=== PATIENT | female | born 1945 | race Caucasian/White ===

== ENCOUNTER → 2018-07-28 15:25 | Outpatient (CLI) | payer OTHER, SELFPAY ==
[2018-07-28 16:37] LABS: Alanine Aminotransferase 36 IU/L (9-52); Albumin 4.6 g/dL (3.5-5.0); Albumin Globulin Ratio 1.4 (1.0-2.8); Alkaline Phosphatase 96 U/L (38-126); Aspartate Aminotransferase 35 IU/L (14-36); BUN Creatinine Ratio 23.8 (6-22); Bilirubin Total 0.2 mg/dL (0.2-1.3); Blood Urea Nitrogen 19 mg/dL (7-17); Calcium 10.4 mg/dL (8.4-10.2); Carbon Dioxide 31 mmol/L (22-32); Chloride 100 mmol/L (98-107); Estimated Glomerular Filt Rate > 60.0 mL/min (>60); Globulin 3.3 g/dL (1.7-4.1); Glucose 92 mg/dL (80-110); HEMOLYSIS < 15 (0-50); Sodium 139 mmol/L (137-145); Total Protein 7.9 g/dL (6.3-8.2)
== END ==
PROVIDERS: PCP Internal Medicine; Visit Provider Internal Medicine
DX: G60.9 Hereditary and idiopathic neuropathy, unspecified (principal); M81.0 Age-related osteoporosis without current pathological fracture
CPT/HCPCS: 36415; 80053

== ENCOUNTER 2018-09-21 13:00 | Outpatient (RCR) | payer OTHER, SELFPAY ==
--- NOTE | 2018-05-26 16:54 | PT.OIE ---
Current Diagnoses Cervicalgia (05/26/18) Past Medical History (Last Reviewed 02/27/18 @ 14:56 by Justin Escamilla MD) Osteopenia (Chronic 02/21/11) Idiopathic peripheral neuropathy (Chronic 02/21/11) Osteoporosis (Chronic 04/08/16) Chicken pox (Resolved ~1948) Mumps (Resolved 1948) Plantar warts (Resolved ~1953) Rubella (Resolved 1948) Trigger finger (Resolved) Past Surgical History (Last Reviewed 02/27/18 @ 14:56 by Justin Escamilla MD) Anesthesia (Resolved) History of hand surgery (Resolved 2008) History of hand surgery (Resolved 2010) History of hand surgery (Resolved 2008) Status post eye surgery (Resolved 1998) Provider Visit Care Team Role Provider Type Justin Escamilla MD Attending Provider Physician Family Provider Primary Care Provider Specialty: Internal Medicine Address: [address] [place] [address], [facility] Email: [email or web address] Physical Therapy Initial Evaluation PT-OP-A Visit Information Start: 05/26/18 08:08 Freq: Status: Active Protocol: Document 05/26/18 08:59 [facility] (Rec: 05/26/18 09:50 [facility] [id number]) Out-Patient Physical Therapy Visit Information Visit Information Visit Type Initial Evaluation Visit Note 1 total Visit Start Time 09:00 Visit Stop Time 09:45 Total Visit Minutes 45 Visit Number 1/10 Number of TECHNICAL OPERATOR Visits 0 PT-OP-B Current Condition Start: 05/26/18 08:08 Freq: Status: Active Protocol: Document 05/26/18 08:59 [facility] (Rec: 05/26/18 09:50 [facility] [id number]) Current Condition History of Current Condition Onset Date 30 years ago Current Complaints neck pain History of Current Condition Pt reports straining her neck when working on their their house 3 years ago. Scapular pain 1 year ago she started therapy when pain got really bad on L side. She did PT and ent well and cont exercises, but noted pain is getting worse. Pt tried chiropractic treatment when she got back from a vacation at the end of December. She reports inc ROM but reports skull aches on R side that are most often at night that go down into R neck. She walks a lot and has no difficulty. 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 Reports being able just watch TV or conversing with friends is difficult d/t having to turn her head. Pt reports she rides her bike and wants to be able to look quickly Prior Treatments and Tests Xray done Future Testing and Treatments Planned PT & chiro Treatment Goals Patient/Caregiver Goals return to gardening, being able to talk to friends and watch TV with less issue, less difficulty with biking, be able to look up with binoculars to bird watching Personal Factors Other Personal Factors That May Effect Thumb pain B and trigger Therapy/Recovery finger sx PT-OP-C Subjective Start: 05/26/18 08:08 Freq: Status: Active Protocol: Document 05/26/18 08:59 [facility] (Rec: 05/26/18 09:50 [facility] [id number]) Patient Questionnaires Neck Disability Index NDI Score 24 Neck Disability Index Impairment 40 to 59% Impaired (Score 20- 29) OP-PT Pain Assessment Location Bilateral Neck Pain Location Details R>L and into R post head pain Intensity 5 Scale Used Numeric (1 - 10) Description Aching Description- Other worst 8 Frequency Constant Pain Duration pain most of time Pain Aggravating Factors ADL's Other Pain Aggravating Factors turning or moving head, stay in positions extended, laying on R side Pain Alleviating Factors Cold Heat Lying Supine PT-OP-F Manual Assessment Start: 05/26/18 08:08 Freq: Status: Active Protocol: Document 05/26/18 08:59 [facility] (Rec: 05/26/18 09:50 [facility] [id number]) Manual Assessments Soft Tissue Assessment Soft Tissue Mobility Assessment overall cervical tightness significant on R>L Joint Mobility Assessment Joint Mobility Assessment elevated 1st rib R PT-OP-J Posture/Palpation/Skin Start: 05/26/18 08:08 Freq: Status: Active Protocol: Document 05/26/18 08:59 [facility] (Rec: 05/26/18 09:50 [facility] [id number]) Posture Evaluation Padmini Postural Classification System Padmini Postural Classifications Anterior/Posterior Elbow Flexion Test 2 PT-OP-K Range of Motion Start: 05/26/18 08:08 Freq: Status: Active Protocol: Document 05/26/18 08:59 [facility] (Rec: 05/26/18 09:50 [facility] [id number]) Cervical Spine Range of Motion Cervical Spine Active Degrees Testing Position Sitting Flexion 31 Extension 22 Rotation Left 30 Rotation Right 38 Lateral Flexion Left 20 Lateral Flexion Right 18 ROM Limitations Pain Comments pain R w/ R lat flex, flex & ext PT-OP-L Special Tests Start: 05/26/18 08:08 Freq: Status: Active Protocol: Document 05/26/18 08:59 [facility] (Rec: 05/26/18 09:50 [facility] [id number]) Special Tests Cervical Spine Special Tests Vertebral Artery Test Results negative Spurling's Test Test Results post for pain Alar Ligament Test Results neg Neural Special Tests- Upper Body Median Nerve Tension Test Results neg L; R positive Radial Nerve Tension Test Results neg B Ulnar Nerve Tension Test Results neg Upper Limb Tension Test Comments passive abd: R ~110; L~150 PT-OP-M Strength Start: 05/26/18 08:08 Freq: Status: Active Protocol: Document 05/26/18 08:59 [facility] (Rec: 05/26/18 09:50 [facility] [id number]) Shoulder Strength Shoulder Manual Muscle Testing Right Flexion 5 Normal Extension 4 Good Abduction (C5) 5 Normal External Rotation 4+ Good+ Internal Rotation 4+ Good+ Horizontal Adduction 4+ Good+ Left Flexion 5 Normal Extension 5 Normal Abduction (C5) 5 Normal External Rotation 5 Normal Internal Rotation 5 Normal Horizontal Adduction 5 Normal PT-OP-Q Treatments Start: 05/26/18 08:08 Freq: Status: Active Protocol: Document 05/26/18 08:59 [facility] (Rec: 05/26/18 10:35 [facility] [id number]) Therapeutic Activity Therapeutic Activity brace Name edu to use brace occasionally only as needed sleep Name sleeping position Comments edu on s/l sleeping PT-OP-T Assessment and Plan Start: 05/26/18 08:08 Freq: Status: Active Protocol: Document 05/26/18 08:59 [facility] (Rec: 05/26/18 16:54 [facility] [id number]) Physical Therapy Assessment Rehab Potential Rehabilitation Potential Good Evaluation Complexity Number of Personal Factors/Comorbidities 1-2 Number of Body Systems Impaired 4 or More Clinical Presentation at Evaluation Evolving Impairments Impairments Activity Tolerance Functional Activities Pain Posture ROM Soft Tissue Mobility Strength Goals ROM Short Term Goal (STG) Indep With HEP STG Duration 06/26/18 Skilled Nursing Goal (LTG) Pt will have WFL ROM to allow her to do her typical daily activities. LTG Duration 07/27/18 NDI Impairment neck disability index Short Term Goal (STG) 18/50 STG Duration 06/26/18 Skilled Nursing Goal (LTG) to show improvement in functional ability LTG Duration 07/27/18 activities Impairment activities Short Term Goal (STG) Pt will be able to demonstrate good sleeping position and be able to sleep without waking d/t pain STG Duration 06/26/18 Skilled Nursing Goal (LTG) Pt will be able to do gardening, time with friends, read, drive and watch TV w/ minimal complaints of pain. LTG Duration 07/27/18 Assessment Summary Assessment Pt presents with cervical spine OA and degeneration consistent with her age. She has elevated 1st rib on R side which likely contributes to her pain. Pt Xray report reports Lower cervical spine disc degeneration with normal overall bony alignment to T1 level. Physical Therapy Plan Frequency and Duration Frequency of Treatment 2x/Week Duration of Treatment 2 months Plan of Care Start Date 05/26/18 Plan of Care End Date 07/27/18 Therapeutic Interventions Therapeutic Interventions Home Exercise Program Joint Mobilizations Manual Therapy Neuromuscular Re-education Patient/Caregiver Education Self-Care/Home Management Soft Tissue Mobilization Taping Therapeutic Activities Therapeutic Exercises Modalities Cold Pack/Ice Massage Electric Stimulation Hot Packs Traction- Mechanical Ultrasound Next Visit Focus/Plan Next Note Type Treatment Note Next Visit Plan HEP (axial elongation, rows, LS & UT stretches, 1st rib mob ), STM & upper thoracic mobs
--- NOTE | 2018-05-26 16:54 | PT.OPPOC ---
Current Diagnoses Cervicalgia (05/26/18) Provider Visit Care Team Role Provider Type Justin Escamilla MD Attending Provider Physician Family Provider Primary Care Provider Specialty: Internal Medicine Address: [address] [place] [address], [id number] Email: [email or web address] Plan Of Care PT-OP-T Assessment and Plan Start: 05/26/18 08:08 Freq: Status: Active Protocol: Document 05/26/18 08:59 [facility] (Rec: 05/26/18 16:54 [facility] [id number]) Physical Therapy Assessment Rehab Potential Rehabilitation Potential Good Evaluation Complexity Number of Personal Factors/Comorbidities 1-2 Number of Body Systems Impaired 4 or More Clinical Presentation at Evaluation Evolving Impairments Impairments Activity Tolerance Functional Activities Pain Posture ROM Soft Tissue Mobility Strength Goals ROM Short Term Goal (STG) Indep With HEP STG Duration 06/26/18 Gymnasium Teacher Goal (LTG) Pt will have WFL ROM to allow her to do her typical daily activities. LTG Duration 07/27/18 NDI Impairment neck disability index Short Term Goal (STG) 18/50 STG Duration 06/26/18 Gymnasium Teacher Goal (LTG) 8/50 to show improvement in functional ability LTG Duration 07/27/18 activities Impairment activities Short Term Goal (STG) Pt will be able to demonstrate good sleeping position and be able to sleep without waking d/t pain STG Duration 06/26/18 Senior Care Goal (LTG) Pt will be able to do gardening, time with friends, read, drive and watch TV w/ minimal complaints of pain. LTG Duration 07/27/18 Assessment Summary Assessment Pt presents with cervical spine OA and degeneration consistent with her age. She has elevated 1st rib on R side which likely contributes to her pain. Pt Xray report reports Lower cervical spine disc degeneration with normal overall bony alignment to T1 level. Physical Therapy Plan Frequency and Duration Frequency of Treatment 2x/Week Duration of Treatment 2 months Plan of Care Start Date 05/26/18 Plan of Care End Date 07/27/18 Therapeutic Interventions Therapeutic Interventions Home Exercise Program Joint Mobilizations Manual Therapy Neuromuscular Re-education Patient/Caregiver Education Self-Care/Home Management Soft Tissue Mobilization Taping Therapeutic Activities Therapeutic Exercises Modalities Cold Pack/Ice Massage Electric Stimulation Hot Packs Traction- Mechanical Ultrasound Next Visit Focus/Plan Next Note Type Treatment Note Next Visit Plan HEP (axial elongation, rows, LS & UT stretches, 1st rib mob ), STM & upper thoracic mobs Plan of Care Dates Plan of Care Start Date 05/26/18 Plan of Care End Date 07/27/18 Please Sign and Return: I have reviewed this Plan of Care and certify that the skilled therapy services above are required to meet the patient?s needs. Physician Signature Date Printed Name and Credentials Clinical Instructor Signature Printed Name and Credentials
--- NOTE | 2018-05-29 14:11 | PT.OTN ---
Current Diagnoses Cervicalgia (05/29/18) Physical Therapy Treatment Note PT-OP-A Visit Information Start: 05/26/18 08:08 Freq: Status: Active Protocol: Document 05/29/18 12:17 [facility] (Rec: 05/29/18 14:11 [facility] [id number]) Out-Patient Physical Therapy Visit Information Visit Information Visit Type Treatment Note Visit Note 2 total Visit Start Time 12:15 Visit Stop Time 13:15 Total Visit Minutes 60 Visit Number 2/ PT-OP-B Current Condition Start: 05/26/18 08:08 Freq: Status: Active Protocol: Document 05/26/18 08:59 [facility] (Rec: 05/26/18 09:50 [facility] [id number]) Current Condition History of Current Condition Onset Date 30 years ago Current Complaints neck pain History of Current Condition Pt reports straining her neck when working on their their house 3 years ago. Scapular pain 1 year ago she started therapy when pain got really bad on L side. She did PT and ent well and cont exercises, but noted pain is getting worse. Pt tried chiropractic treatment when she got back from a vacation at the end of December. She reports inc ROM but reports skull aches on R side that are most often at night that go down into R neck. She walks a lot and has no difficulty. 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 Reports being able just watch TV or conversing with friends is difficult d/t having to turn her head. Pt reports she rides her bike and wants to be able to look quickly Prior Treatments and Tests Xray done Future Testing and Treatments Planned PT & chiro Treatment Goals Patient/Caregiver Goals return to gardening, being able to talk to friends and watch TV with less issue, less difficulty with biking, be able to look up with binoculars to bird watching Personal Factors Other Personal Factors That May Effect Thumb pain B and trigger Therapy/Recovery finger sx PT-OP-C Subjective Start: 05/26/18 08:08 Freq: Status: Active Protocol: Document 05/29/18 12:17 [facility] (Rec: 05/29/18 14:11 [facility] [id number]) OP-PT Subjective Patient Comments Patient Comments Pt reports she has had difficulty with sleeping position d/t rolling or getting too hot. PT-OP-F Manual Assessment Start: 05/26/18 08:08 Freq: Status: Active Protocol: Document 05/26/18 08:59 [facility] (Rec: 05/26/18 09:50 [facility] [id number]) Manual Assessments Soft Tissue Assessment Soft Tissue Mobility Assessment overall cervical tightness significant on R>L Joint Mobility Assessment Joint Mobility Assessment elevated 1st rib R PT-OP-J Posture/Palpation/Skin Start: 05/26/18 08:08 Freq: Status: Active Protocol: Document 05/26/18 08:59 [facility] (Rec: 05/26/18 09:50 [facility] [id number]) Posture Evaluation [facility] Postural Classification System Padmini Postural Classifications Anterior/Posterior Elbow Flexion Test 2 PT-OP-K Range of Motion Start: 05/26/18 08:08 Freq: Status: Active Protocol: Document 05/26/18 08:59 [facility] (Rec: 05/26/18 09:50 [facility] [id number]) Cervical Spine Range of Motion Cervical Spine Active Degrees Testing Position Sitting Flexion 31 Extension 22 Rotation Left 30 Rotation Right 38 Lateral Flexion Left 20 Lateral Flexion Right 18 ROM Limitations Pain Comments pain R w/ R lat flex, flex & ext PT-OP-L Special Tests Start: 05/26/18 08:08 Freq: Status: Active Protocol: Document 05/26/18 08:59 [facility] (Rec: 05/26/18 09:50 [facility] [id number]) Special Tests Cervical Spine Special Tests Vertebral Artery Test Results negative Spurling's Test Test Results post for pain Alar Ligament Test Results neg Neural Special Tests- Upper Body Median Nerve Tension Test Results neg L; R positive Radial Nerve Tension Test Results neg B Ulnar Nerve Tension Test Results neg Upper Limb Tension Test Comments passive abd: R ~110; L~150 PT-OP-M Strength Start: 05/26/18 08:08 Freq: Status: Active Protocol: Document 05/26/18 08:59 [facility] (Rec: 05/26/18 09:50 [facility] [id number]) Shoulder Strength Shoulder Manual Muscle Testing Right Flexion 5 Normal Extension 4 Good Abduction (C5) 5 Normal External Rotation 4+ Good+ Internal Rotation 4+ Good+ Horizontal Adduction 4+ Good+ Left Flexion 5 Normal Extension 5 Normal Abduction (C5) 5 Normal External Rotation 5 Normal Internal Rotation 5 Normal Horizontal Adduction 5 Normal PT-OP-Q Treatments Start: 05/26/18 08:08 Freq: Status: Active Protocol: Document 05/29/18 12:17 [facility] (Rec: 05/29/18 14:11 [facility] [id number]) Therapeutic Exercises Supine Exercises axial elongation Supine Exercise Name axial elongation withou lifting head Reps/Minutes 10 sec hold Sitting Exercises stretches Sitting Exercise Name UT & LS stretches Reps/Minutes 30 sec holds Standing Exercises shoulder row Standing Exercise Name row Side bilateral Resistance L2 Reps/Minutes 15 Comments focus on scap retraction wall posture Standing Exercise Name w/90/90 ER Reps/Minutes 10 Manual Therapy Treatment Soft Tissue Mobilization SOR Body Location SOR Mobilization Type Sustained Pressure Intensity/Depth Moderate UT/LS Body Location UT/LS R Mobilization Type Rolling Intensity/Depth Moderate cervical paraspinals Mobilization Type Rolling Intensity/Depth Moderate Comments FM with chin tuck PT-OP-R Modalities Start: 05/26/18 08:08 Freq: Status: Active Protocol: Document 05/29/18 12:17 [facility] (Rec: 05/29/18 14:11 [facility] [id number]) Hot Pack/Cold Pack Treatment Hot Pack Location cervical Patient Position Hooklying Treatment Duration (minutes) 15 PT-OP-T Assessment and Plan Start: 05/26/18 08:08 Freq: Status: Active Protocol: Document 05/29/18 12:17 [facility] (Rec: 05/29/18 14:11 [facility] [id number]) Physical Therapy Assessment Goals ROM Short Term Goal (STG) Indep With HEP STG Duration 06/26/18 Cut Out Machine Operator Goal (LTG) Pt will have WFL ROM to allow her to do her typical daily activities. LTG Duration 07/27/18 NDI Impairment neck disability index Short Term Goal (STG) 18/50 STG Duration 06/26/18 Cut Out Machine Operator Goal (LTG) 8/50 to show improvement in functional ability LTG Duration 07/27/18 activities Impairment activities Short Term Goal (STG) Pt will be able to demonstrate good sleeping position and be able to sleep without waking d/t pain STG Duration 06/26/18 Long-Term Goal (LTG) Pt will be able to do gardening, time with friends, read, drive and watch TV w/ minimal complaints of pain. LTG Duration 07/27/18 Assessment Summary Assessment Pt has significant soft tissue restrictions that limit her motion. She has difficulty with achieving axial elongation without fwd flex. Pt did well with exercises with cueing. No pain after exercises. Physical Therapy Plan Frequency and Duration Frequency of Treatment 2x/Week Duration of Treatment 2 months Plan of Care Start Date 05/26/18 Plan of Care End Date 07/27/18 Next Visit Focus/Plan Next Note Type Treatment Note Next Visit Plan review HEP & work on PNF scapular dep
--- NOTE | 2018-06-05 13:01 | PT.OTN ---
Current Diagnoses Cervicalgia (06/05/18) Physical Therapy Treatment Note PT-OP-A Visit Information Start: 05/26/18 08:08 Freq: Status: Active Protocol: Document 06/05/18 12:23 [facility] (Rec: 06/05/18 13:01 [facility] [id number]) Out-Patient Physical Therapy Visit Information Visit Information Visit Type Treatment Note Visit Note 3 total Visit Start Time 12:15 Visit Stop Time 13:10 Total Visit Minutes 55 Visit Number 3/ PT-OP-B Current Condition Start: 05/26/18 08:08 Freq: Status: Active Protocol: Document 05/26/18 08:59 [facility] (Rec: 05/26/18 09:50 [facility] [id number]) Current Condition History of Current Condition Onset Date 30 years ago Current Complaints neck pain History of Current Condition Pt reports straining her neck when working on their their house 3 years ago. Scapular pain 1 year ago she started therapy when pain got really bad on L side. She did PT and ent well and cont exercises, but noted pain is getting worse. Pt tried chiropractic treatment when she got back from a vacation at the end of December. She reports inc ROM but reports skull aches on R side that are most often at night that go down into R neck. She walks a lot and has no difficulty. 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 Reports being able just watch TV or conversing with friends is difficult d/t having to turn her head. Pt reports she rides her bike and wants to be able to look quickly Prior Treatments and Tests Xray done Future Testing and Treatments Planned PT & chiro Treatment Goals Patient/Caregiver Goals return to gardening, being able to talk to friends and watch TV with less issue, less difficulty with biking, be able to look up with binoculars to bird watching Personal Factors Other Personal Factors That May Effect Thumb pain B and trigger Therapy/Recovery finger sx PT-OP-C Subjective Start: 05/26/18 08:08 Freq: Status: Active Protocol: Document 06/05/18 12:23 [facility] (Rec: 06/05/18 13:01 [facility] [id number]) OP-PT Subjective Patient Comments Patient Comments Pt reports she feels like she overall did well with exercises. PT-OP-F Manual Assessment Start: 05/26/18 08:08 Freq: Status: Active Protocol: Document 05/26/18 08:59 [facility] (Rec: 05/26/18 09:50 [facility] [id number]) Manual Assessments Soft Tissue Assessment Soft Tissue Mobility Assessment overall cervical tightness significant on R>L Joint Mobility Assessment Joint Mobility Assessment elevated 1st rib R PT-OP-J Posture/Palpation/Skin Start: 05/26/18 08:08 Freq: Status: Active Protocol: Document 05/26/18 08:59 [facility] (Rec: 05/26/18 09:50 [facility] [id number]) Posture Evaluation [facility] Postural Classification System [facility] Postural Classifications Anterior/Posterior Elbow Flexion Test 2 PT-OP-K Range of Motion Start: 05/26/18 08:08 Freq: Status: Active Protocol: Document 05/26/18 08:59 [facility] (Rec: 05/26/18 09:50 [facility] [id number]) Cervical Spine Range of Motion Cervical Spine Active Degrees Testing Position Sitting Flexion 31 Extension 22 Rotation Left 30 Rotation Right 38 Lateral Flexion Left 20 Lateral Flexion Right 18 ROM Limitations Pain Comments pain R w/ R lat flex, flex & ext PT-OP-L Special Tests Start: 05/26/18 08:08 Freq: Status: Active Protocol: Document 05/26/18 08:59 [facility] (Rec: 05/26/18 09:50 [facility] [id number]) Special Tests Cervical Spine Special Tests Vertebral Artery Test Results negative Spurling's Test Test Results post for pain Alar Ligament Test Results neg Neural Special Tests- Upper Body Median Nerve Tension Test Results neg L; R positive Radial Nerve Tension Test Results neg B Ulnar Nerve Tension Test Results neg Upper Limb Tension Test Comments passive abd: R ~110; L~150 PT-OP-M Strength Start: 05/26/18 08:08 Freq: Status: Active Protocol: Document 05/26/18 08:59 [facility] (Rec: 05/26/18 09:50 [facility] [id number]) Shoulder Strength Shoulder Manual Muscle Testing Right Flexion 5 Normal Extension 4 Good Abduction (C5) 5 Normal External Rotation 4+ Good+ Internal Rotation 4+ Good+ Horizontal Adduction 4+ Good+ Left Flexion 5 Normal Extension 5 Normal Abduction (C5) 5 Normal External Rotation 5 Normal Internal Rotation 5 Normal Horizontal Adduction 5 Normal PT-OP-Q Treatments Start: 05/26/18 08:08 Freq: Status: Active Protocol: Document 06/05/18 12:23 [facility] (Rec: 06/05/18 13:01 [facility] [id number]) Therapeutic Exercises Supine Exercises axial elongation Supine Exercise Name axial elongation withou lifting head Reps/Minutes 10 sec hold Sidelying Exercises roll & reach Sidelying Exercise Name roll & reach Reps/Minutes 10 Sitting Exercises stretches Sitting Exercise Name UT & LS & scalene stretches Reps/Minutes 30 sec holds Standing Exercises shoulder row Standing Exercise Name row Side bilateral Resistance L2 Reps/Minutes 15 Comments focus on scap retraction wall posture Standing Exercise Name w/90/90 ER Reps/Minutes 10 Manual Therapy Treatment Soft Tissue Mobilization scalenes Body Location scalenes R Mobilization Type Rolling SOR Body Location SOR Mobilization Type Sustained Pressure Intensity/Depth Moderate UT/LS Body Location UT/LS R Mobilization Type Rolling Intensity/Depth Moderate Joint Mobilizations 1st rib Joint 1st rib Direction caudal FM PT-OP-R Modalities Start: 05/26/18 08:08 Freq: Status: Active Protocol: Document 06/05/18 12:23 [facility] (Rec: 06/05/18 13:01 [facility] [id number]) Hot Pack/Cold Pack Treatment Hot Pack Location cervical Patient Position Hooklying Treatment Duration (minutes) 15 PT-OP-T Assessment and Plan Start: 05/26/18 08:08 Freq: Status: Active Protocol: Document 06/05/18 12:23 [facility] (Rec: 06/05/18 13:01 [facility] [id number]) Physical Therapy Assessment Goals ROM Short Term Goal (STG) Indep With HEP STG Duration 06/26/18 Sales Representative Facility Services Goal (LTG) Pt will have WFL ROM to allow her to do her typical daily activities. LTG Duration 07/27/18 NDI Impairment neck disability index Short Term Goal (STG) 18/50 STG Duration 06/26/18 Prison Goal (LTG) 8/50 to show improvement in functional ability LTG Duration 07/27/18 activities Impairment activities Short Term Goal (STG) Pt will be able to demonstrate good sleeping position and be able to sleep without waking d/t pain STG Duration 06/26/18 Prison Goal (LTG) Pt will be able to do gardening, time with friends, read, drive and watch TV w/ minimal complaints of pain. LTG Duration 07/27/18 Assessment Summary Assessment Pt is improving with scapular mobility, but does have some upper thoracic tightness limiting neck range. Improved in UT and LS mm tesnsion after STM. Physical Therapy Plan Frequency and Duration Frequency of Treatment 2x/Week Duration of Treatment 2 months Plan of Care Start Date 05/26/18 Plan of Care End Date 07/27/18 Next Visit Focus/Plan Next Note Type Treatment Note Next Visit Plan PNF scapular depression.
--- NOTE | 2018-06-08 13:49 | PT.OTN ---
Current Diagnoses Cervicalgia (06/08/18) Physical Therapy Treatment Note PT-OP-A Visit Information Start: 05/26/18 08:08 Freq: Status: Active Protocol: Document 06/08/18 12:02 [facility] (Rec: 06/08/18 12:04 [facility] [id number]) Out-Patient Physical Therapy Visit Information Visit Information Visit Type Treatment Note Visit Note 4 total Visit Start Time 11:20 Visit Stop Time 12:15 Total Visit Minutes 55 Visit Number 09/30 PT-OP-B Current Condition Start: 05/26/18 08:08 Freq: Status: Active Protocol: Document 05/26/18 08:59 [facility] (Rec: 05/26/18 09:50 [facility] [id number]) Current Condition History of Current Condition Onset Date 30 years ago Current Complaints neck pain History of Current Condition Pt reports straining her neck when working on their their house 3 years ago. Scapular pain 1 year ago she started therapy when pain got really bad on L side. She did PT and ent well and cont exercises, but noted pain is getting worse. Pt tried chiropractic treatment when she got back from a vacation at the end of December. She reports inc ROM but reports skull aches on R side that are most often at night that go down into R neck. She walks a lot and has no difficulty. 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 Reports being able just watch TV or conversing with friends is difficult d/t having to turn her head. Pt reports she rides her bike and wants to be able to look quickly Prior Treatments and Tests Xray done Future Testing and Treatments Planned PT & chiro Treatment Goals Patient/Caregiver Goals return to gardening, being able to talk to friends and watch TV with less issue, less difficulty with biking, be able to look up with binoculars to bird watching Personal Factors Other Personal Factors That May Effect Thumb pain B and trigger Therapy/Recovery finger sx PT-OP-C Subjective Start: 05/26/18 08:08 Freq: Status: Active Protocol: Document 06/08/18 12:02 [facility] (Rec: 06/08/18 12:04 [facility] [id number]) OP-PT Subjective Patient Comments Patient Comments Pt reports she noticed when she tried bird watching she felt stiff looking up to the right PT-OP-F Manual Assessment Start: 05/26/18 08:08 Freq: Status: Active Protocol: Document 05/26/18 08:59 [facility] (Rec: 05/26/18 09:50 [facility] [id number]) Manual Assessments Soft Tissue Assessment Soft Tissue Mobility Assessment overall cervical tightness significant on R>L Joint Mobility Assessment Joint Mobility Assessment elevated 1st rib R PT-OP-J Posture/Palpation/Skin Start: 05/26/18 08:08 Freq: Status: Active Protocol: Document 05/26/18 08:59 [facility] (Rec: 05/26/18 09:50 [facility] [id number]) Posture Evaluation [facility] Postural Classification System [facility] Postural Classifications Anterior/Posterior Elbow Flexion Test 2 PT-OP-K Range of Motion Start: 05/26/18 08:08 Freq: Status: Active Protocol: Document 05/26/18 08:59 [facility] (Rec: 05/26/18 09:50 [facility] [id number]) Cervical Spine Range of Motion Cervical Spine Active Degrees Testing Position Sitting Flexion 31 Extension 22 Rotation Left 30 Rotation Right 38 Lateral Flexion Left 20 Lateral Flexion Right 18 ROM Limitations Pain Comments pain R w/ R lat flex, flex & ext PT-OP-L Special Tests Start: 05/26/18 08:08 Freq: Status: Active Protocol: Document 05/26/18 08:59 [facility] (Rec: 05/26/18 09:50 [facility] [id number]) Special Tests Cervical Spine Special Tests Vertebral Artery Test Results negative Spurling's Test Test Results post for pain Alar Ligament Test Results neg Neural Special Tests- Upper Body Median Nerve Tension Test Results neg L; R positive Radial Nerve Tension Test Results neg B Ulnar Nerve Tension Test Results neg Upper Limb Tension Test Comments passive abd: R ~110; L~150 PT-OP-M Strength Start: 05/26/18 08:08 Freq: Status: Active Protocol: Document 05/26/18 08:59 [facility] (Rec: 05/26/18 09:50 [facility] [id number]) Shoulder Strength Shoulder Manual Muscle Testing Right Flexion 5 Normal Extension 4 Good Abduction (C5) 5 Normal External Rotation 4+ Good+ Internal Rotation 4+ Good+ Horizontal Adduction 4+ Good+ Left Flexion 5 Normal Extension 5 Normal Abduction (C5) 5 Normal External Rotation 5 Normal Internal Rotation 5 Normal Horizontal Adduction 5 Normal PT-OP-Q Treatments Start: 12/04/18 08:08 Freq: Status: Active Protocol: Document 06/08/18 12:02 [facility] (Rec: 06/08/18 13:49 [facility] [id number]) Manual Therapy Treatment Soft Tissue Mobilization SOR Body Location SOR Mobilization Type Sustained Pressure Intensity/Depth Moderate UT/LS Body Location UT/LS R Mobilization Type Rolling Intensity/Depth Moderate cervical paraspinals Mobilization Type Rolling Intensity/Depth Moderate Comments FM with chin tuck Joint Mobilizations C2 Joint C2 Direction L transverse FM T1-3 Joint T1-3 Direction L transverse FM & R UPA FM 1st rib Joint 1st rib Direction caudal FM Neuro Re-Education Treatment Other Activities post depression Details post depression Comments rhythmic initiation ot COI ant elevation Details ant elevation Comments rhythmic initiation to COI PT-OP-R Modalities Start: 05/26/18 08:08 Freq: Status: Active Protocol: Document 06/08/18 12:02 [facility] (Rec: 06/08/18 12:04 [facility] [id number]) Hot Pack/Cold Pack Treatment Hot Pack Location cervical Patient Position Hooklying Treatment Duration (minutes) 15 PT-OP-T Assessment and Plan Start: 05/26/18 08:08 Freq: Status: Active Protocol: Document 06/08/18 12:02 [facility] (Rec: 06/08/18 13:49 [facility] [id number]) Physical Therapy Assessment Goals ROM Short Term Goal (STG) Indep With HEP STG Duration 06/26/18 Snf Goal (LTG) Pt will have WFL ROM to allow her to do her typical daily activities. 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 LTG Duration 07/27/18 Assessment Summary Assessment Pt improved with post depression range after working PNF patterns, but does cont to have limitations with rotations & extensions. Pt improves ROM with PA & transverse glides. Physical Therapy Plan Frequency and Duration Frequency of Treatment 2x/Week Duration of Treatment 2 months Plan of Care Start Date 05/26/18 Plan of Care End Date 07/27/18 Next Visit Focus/Plan Next Note Type Treatment Note Next Visit Plan End range stretches; ext & ER
--- NOTE | 2018-06-11 10:30 | PT.OTN ---
Current Diagnoses Cervicalgia (06/11/18) Physical Therapy Treatment Note PT-OP-A Visit Information Start: 05/26/18 08:08 Freq: Status: Active Protocol: Document 06/11/18 10:27 [facility] (Rec: 06/11/18 10:30 [facility] [id number]) Out-Patient Physical Therapy Visit Information Visit Information Visit Type Treatment Note Visit Note 5 total Visit Start Time 09:45 Visit Stop Time 10:33 Total Visit Minutes 48 Visit Number / PT-OP-B Current Condition Start: 05/26/18 08:08 Freq: Status: Active Protocol: Document 05/26/18 08:59 [facility] (Rec: 05/26/18 09:50 [facility] [id number]) Current Condition History of Current Condition Onset Date 30 years ago Current Complaints neck pain History of Current Condition Pt reports straining her neck when working on their their house 3 years ago. Scapular pain 1 year ago she started therapy when pain got really bad on L side. She did PT and ent well and cont exercises, but noted pain is getting worse. Pt tried chiropractic treatment when she got back from a vacation at the end of December. She reports inc ROM but reports skull aches on R side that are most often at night that go down into R neck. She walks a lot and has no difficulty. 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 Reports being able just watch TV or conversing with friends is difficult d/t having to turn her head. Pt reports she rides her bike and wants to be able to look quickly Prior Treatments and Tests Xray done Future Testing and Treatments Planned PT & chiro Treatment Goals Patient/Caregiver Goals return to gardening, being able to talk to friends and watch TV with less issue, less difficulty with biking, be able to look up with binoculars to bird watching Personal Factors Other Personal Factors That May Effect Thumb pain B and trigger Therapy/Recovery finger sx PT-OP-C Subjective Start: 05/26/18 08:08 Freq: Status: Active Protocol: Document 06/11/18 10:27 [facility] (Rec: 06/11/18 10:30 [facility] [id number]) OP-PT Subjective Patient Comments Patient Comments Reports she hasn't stretched yet today but is otherwise doing HEP daily PT-OP-F Manual Assessment Start: 05/26/18 08:08 Freq: Status: Active Protocol: Document 05/26/18 08:59 [facility] (Rec: 05/26/18 09:50 [facility] [id number]) Manual Assessments Soft Tissue Assessment Soft Tissue Mobility Assessment overall cervical tightness significant on R>L Joint Mobility Assessment Joint Mobility Assessment elevated 1st rib R PT-OP-J Posture/Palpation/Skin Start: 05/26/18 08:08 Freq: Status: Active Protocol: Document 05/26/18 08:59 [facility] (Rec: 05/26/18 09:50 [facility] [id number]) Posture Evaluation [facility] Postural Classification System [facility] Postural Classifications Anterior/Posterior Elbow Flexion Test 2 PT-OP-K Range of Motion Start: 05/26/18 08:08 Freq: Status: Active Protocol: Document 05/26/18 08:59 [facility] (Rec: 05/26/18 09:50 [facility] [id number]) Cervical Spine Range of Motion Cervical Spine Active Degrees Testing Position Sitting Flexion 31 Extension 22 Rotation Left 30 Rotation Right 38 Lateral Flexion Left 20 Lateral Flexion Right 18 ROM Limitations Pain Comments pain R w/ R lat flex, flex & ext PT-OP-L Special Tests Start: 05/26/18 08:08 Freq: Status: Active Protocol: Document 05/26/18 08:59 [facility] (Rec: 05/26/18 09:50 [facility] [id number]) Special Tests Cervical Spine Special Tests Vertebral Artery Test Results negative Spurling's Test Test Results post for pain Alar Ligament Test Results neg Neural Special Tests- Upper Body Median Nerve Tension Test Results neg L; R positive Radial Nerve Tension Test Results neg B Ulnar Nerve Tension Test Results neg Upper Limb Tension Test Comments passive abd: R ~110; L~150 PT-OP-M Strength Start: 05/26/18 08:08 Freq: Status: Active Protocol: Document 05/26/18 08:59 [facility] (Rec: 05/26/18 09:50 [facility] [id number]) Shoulder Strength Shoulder Manual Muscle Testing Right Flexion 5 Normal Extension 4 Good Abduction (C5) 5 Normal External Rotation 4+ Good+ Internal Rotation 4+ Good+ Horizontal Adduction 4+ Good+ Left Flexion 5 Normal Extension 5 Normal Abduction (C5) 5 Normal External Rotation 5 Normal Internal Rotation 5 Normal Horizontal Adduction 5 Normal PT-OP-Q Treatments Start: 05/26/18 08:08 Freq: Status: Active Protocol: Document 06/11/18 10:27 [facility] (Rec: 06/11/18 10:30 [facility] [id number]) Manual Therapy Treatment Soft Tissue Mobilization CT junction Body Location CT junction Post Mobilization Type Myofascial Release Comments FM w/dycem scalenes Body Location scalenes R Mobilization Type Rolling SOR Body Location SOR Mobilization Type Sustained Pressure Intensity/Depth Moderate UT/LS Body Location UT/LS R Mobilization Type Rolling Intensity/Depth Moderate cervical paraspinals Mobilization Type Rolling Intensity/Depth Moderate Comments FM with chin tuck Joint Mobilizations SC Joint SC Direction caudal FM B 1st rib Joint 1st rib R Direction caudal FM PT-OP-R Modalities Start: 05/26/18 08:08 Freq: Status: Active Protocol: Document 06/11/18 10:27 [facility] (Rec: 06/11/18 10:30 [facility] [id number]) Hot Pack/Cold Pack Treatment Cold Pack Location cervical Patient Position Hooklying Treatment Duration (minutes) 10 PT-OP-T Assessment and Plan Start: 05/26/18 08:08 Freq: Status: Active Protocol: Document 06/11/18 10:27 [facility] (Rec: 06/11/18 10:30 [facility] [id number]) Physical Therapy Assessment Goals ROM Short Term Goal (STG) Indep With HEP STG Duration 06/26/18 Senior Living Goal (LTG) Pt will have WFL ROM to allow her to do her typical daily activities. LTG Duration 07/27/18 NDI Impairment neck disability index Short Term Goal (STG) 18/50 STG Duration 06/26/18 Flight Instructor Goal (LTG) 8/50 to show improvement in functional ability LTG Duration 07/27/18 activities Impairment activities Short Term Goal (STG) Pt will be able to demonstrate good sleeping position and be able to sleep without waking d/t pain STG Duration 06/26/18 Senior Living Goal (LTG) Pt will be able to do gardening, time with friends, read, drive and watch TV w/ minimal complaints of pain. LTG Duration 07/27/18 Assessment Summary Assessment Pt improved from about 37 deg flex to 52 after manual treatment to post cervical soft tissues and downward glide of clavicle. Improved L rotation with STM to lat mm of R side. Physical Therapy Plan Frequency and Duration Frequency of Treatment 2x/Week Duration of Treatment 2 months Plan of Care Start Date 05/26/18 Plan of Care End Date 07/27/18 Next Visit Focus/Plan Next Note Type Treatment Note Next Visit Plan End range stretches; ext & ER
--- NOTE | 2018-06-17 11:20 | PT.OTN ---
Current Diagnoses Cervicalgia (06/17/18) Physical Therapy Treatment Note PT-OP-A Visit Information Start: 05/26/18 08:08 Freq: Status: Active Protocol: Document 06/17/18 10:31 [facility] (Rec: 06/17/18 11:19 [facility] [id number]) Out-Patient Physical Therapy Visit Information Visit Information Visit Type Treatment Note Visit Note 6 total Visit Start Time 10:30 Visit Stop Time 11:25 Total Visit Minutes 55 Visit Number 11/30 PT-OP-B Current Condition Start: 05/26/18 08:08 Freq: Status: Active Protocol: Document 05/26/18 08:59 [facility] (Rec: 05/26/18 09:50 [facility] [id number]) Current Condition History of Current Condition Onset Date 30 years ago Current Complaints neck pain History of Current Condition Pt reports straining her neck when working on their their house 3 years ago. Scapular pain 1 year ago she started therapy when pain got really bad on L side. She did PT and ent well and cont exercises, but noted pain is getting worse. Pt tried chiropractic treatment when she got back from a vacation at the end of December. She reports inc ROM but reports skull aches on R side that are most often at night that go down into R neck. She walks a lot and has no difficulty. 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 Reports being able just watch TV or conversing with friends is difficult d/t having to turn her head. Pt reports she rides her bike and wants to be able to look quickly Prior Treatments and Tests Xray done Future Testing and Treatments Planned PT & chiro Treatment Goals Patient/Caregiver Goals return to gardening, being able to talk to friends and watch TV with less issue, less difficulty with biking, be able to look up with binoculars to bird watching Personal Factors Other Personal Factors That May Effect Thumb pain B and trigger Therapy/Recovery finger sx PT-OP-C Subjective Start: 05/26/18 08:08 Freq: Status: Active Protocol: Document 06/17/18 10:31 [facility] (Rec: 06/17/18 11:19 [facility] [id number]) OP-PT Subjective Patient Comments Patient Comments Reports she sometimes gets pain in neck when laying down and repositioning. PT-OP-F Manual Assessment Start: 05/26/18 08:08 Freq: Status: Active Protocol: Document 05/26/18 08:59 [facility] (Rec: 05/26/18 09:50 [facility] [id number]) Manual Assessments Soft Tissue Assessment Soft Tissue Mobility Assessment overall cervical tightness significant on R>L Joint Mobility Assessment Joint Mobility Assessment elevated 1st rib R PT-OP-J Posture/Palpation/Skin Start: 05/26/18 08:08 Freq: Status: Active Protocol: Document 05/26/18 08:59 [facility] (Rec: 05/26/18 09:50 [facility] [id number]) Posture Evaluation [facility] Postural Classification System [facility] Postural Classifications Anterior/Posterior Elbow Flexion Test 2 PT-OP-K Range of Motion Start: 05/26/18 08:08 Freq: Status: Active Protocol: Document 05/26/18 08:59 [facility] (Rec: 05/26/18 09:50 [facility] [id number]) Cervical Spine Range of Motion Cervical Spine Active Degrees Testing Position Sitting Flexion 31 Extension 22 Rotation Left 30 Rotation Right 38 Lateral Flexion Left 20 Lateral Flexion Right 18 ROM Limitations Pain Comments pain R w/ R lat flex, flex & ext PT-OP-L Special Tests Start: 05/26/18 08:08 Freq: Status: Active Protocol: Document 05/26/18 08:59 [facility] (Rec: 05/26/18 09:50 [facility] [id number]) Special Tests Cervical Spine Special Tests Vertebral Artery Test Results negative Spurling's Test Test Results post for pain Alar Ligament Test Results neg Neural Special Tests- Upper Body Median Nerve Tension Test Results neg L; R positive Radial Nerve Tension Test Results neg B Ulnar Nerve Tension Test Results neg Upper Limb Tension Test Comments passive abd: R ~110; L~150 PT-OP-M Strength Start: 05/26/18 08:08 Freq: Status: Active Protocol: Document 05/26/18 08:59 [facility] (Rec: 05/26/18 09:50 [facility] [id number]) Shoulder Strength Shoulder Manual Muscle Testing Right Flexion 5 Normal Extension 4 Good Abduction (C5) 5 Normal External Rotation 4+ Good+ Internal Rotation 4+ Good+ Horizontal Adduction 4+ Good+ Left Flexion 5 Normal Extension 5 Normal Abduction (C5) 5 Normal External Rotation 5 Normal Internal Rotation 5 Normal Horizontal Adduction 5 Normal PT-OP-Q Treatments Start: 05/26/18 08:08 Freq: Status: Active Protocol: Document 06/17/18 10:31 [facility] (Rec: 06/17/18 11:19 [facility] [id number]) Therapeutic Exercises Supine Exercises rotations Supine Exercise Name end range rotations with overpressure Reps/Minutes 30 sec hold Standing Exercises shoulder ER Standing Exercise Name B ER Equipment Used L2 Reps/Minutes 20 shoulder ext Standing Exercise Name shoulder ext B Equipment Used L3 Reps/Minutes 20 Therapeutic Activity Therapeutic Activity standing Name standing posture Manual Therapy Treatment Soft Tissue Mobilization cranial fascia Body Location cranial fascia Mobilization Type Myofascial Release SOR Body Location SOR Mobilization Type Sustained Pressure Intensity/Depth Moderate cervical paraspinals Mobilization Type Rolling Intensity/Depth Moderate Comments FM with chin tuck PT-OP-R Modalities Start: 05/26/18 08:08 Freq: Status: Active Protocol: Document 06/17/18 10:31 [facility] (Rec: 06/17/18 11:19 [facility] [id number]) Hot Pack/Cold Pack Treatment Hot Pack Location cervical Patient Position Hooklying Treatment Duration (minutes) 15 PT-OP-T Assessment and Plan Start: 05/26/18 08:08 Freq: Status: Active Protocol: Document 06/17/18 10:31 [facility] (Rec: 06/17/18 11:19 [facility] [id number]) Physical Therapy Assessment Goals ROM Short Term Goal (STG) Indep With HEP STG Duration 06/26/18 Residential Goal (LTG) Pt will have WFL ROM to allow her to do her typical daily activities. LTG Duration 07/27/18 NDI Impairment neck disability index Short Term Goal (STG) 18/50 STG Duration 06/26/18 Residential Goal (LTG) 8/50 to show improvement in functional ability LTG Duration 07/27/18 activities Impairment activities Short Term Goal (STG) Pt will be able to demonstrate good sleeping position and be able to sleep without waking d/t pain STG Duration 06/26/18 Residential Goal (LTG) Pt will be able to do gardening, time with friends, read, drive and watch TV w/ minimal complaints of pain. LTG Duration 07/27/18 Assessment Summary Assessment Pt improving facial mobility with STM. She required cueing to get into good posture & picutes and cueing for tband exercises. Physical Therapy Plan Frequency and Duration Frequency of Treatment 2x/Week Duration of Treatment 2 months Plan of Care Start Date 05/26/18 Plan of Care End Date 07/27/18 Next Visit Focus/Plan Next Note Type Treatment Note Next Visit Plan review HEP & work on cranial mobs
--- NOTE | 2018-06-19 12:48 | PT.OTN ---
Current Diagnoses Cervicalgia (06/19/18) Physical Therapy Treatment Note PT-OP-A Visit Information Start: 05/26/18 08:08 Freq: Status: Active Protocol: Document 06/19/18 12:39 [facility] (Rec: 06/19/18 12:48 [facility] [id number]) Out-Patient Physical Therapy Visit Information Visit Information Visit Type Treatment Note Visit Note 7 total Visit Start Time 10:30 Visit Stop Time 11:25 Total Visit Minutes 55 Visit Number 12/30 PT-OP-B Current Condition Start: 05/26/18 08:08 Freq: Status: Active Protocol: Document 05/26/18 08:59 [facility] (Rec: 05/26/18 09:50 [facility] [id number]) Current Condition History of Current Condition Onset Date 30 years ago Current Complaints neck pain History of Current Condition Pt reports straining her neck when working on their their house 3 years ago. Scapular pain 1 year ago she started therapy when pain got really bad on L side. She did PT and ent well and cont exercises, but noted pain is getting worse. Pt tried chiropractic treatment when she got back from a vacation at the end of December. She reports inc ROM but reports skull aches on R side that are most often at night that go down into R neck. She walks a lot and has no difficulty. 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 Reports being able just watch TV or conversing with friends is difficult d/t having to turn her head. Pt reports she rides her bike and wants to be able to look quickly Prior Treatments and Tests Xray done Future Testing and Treatments Planned PT & chiro Treatment Goals Patient/Caregiver Goals return to gardening, being able to talk to friends and watch TV with less issue, less difficulty with biking, be able to look up with binoculars to bird watching Personal Factors Other Personal Factors That May Effect Thumb pain B and trigger Therapy/Recovery finger sx PT-OP-C Subjective Start: 05/26/18 08:08 Freq: Status: Active Protocol: Document 06/19/18 12:39 [facility] (Rec: 06/19/18 12:48 [facility] [id number]) OP-PT Subjective Patient Comments Patient Comments Pt reports she will be bird watching a lot this weekend. PT-OP-F Manual Assessment Start: 05/26/18 08:08 Freq: Status: Active Protocol: Document 05/26/18 08:59 [facility] (Rec: 05/26/18 09:50 [facility] [id number]) Manual Assessments Soft Tissue Assessment Soft Tissue Mobility Assessment overall cervical tightness significant on R>L Joint Mobility Assessment Joint Mobility Assessment elevated 1st rib R PT-OP-J Posture/Palpation/Skin Start: 05/26/18 08:08 Freq: Status: Active Protocol: Document 05/26/18 08:59 [facility] (Rec: 05/26/18 09:50 [facility] [id number]) Posture Evaluation [facility] Postural Classification System [facility] Postural Classifications Anterior/Posterior Elbow Flexion Test 2 PT-OP-K Range of Motion Start: 05/26/18 08:08 Freq: Status: Active Protocol: Document 05/26/18 08:59 [facility] (Rec: 05/26/18 09:50 [facility] [id number]) Cervical Spine Range of Motion Cervical Spine Active Degrees Testing Position Sitting Flexion 31 Extension 22 Rotation Left 30 Rotation Right 38 Lateral Flexion Left 20 Lateral Flexion Right 18 ROM Limitations Pain Comments pain R w/ R lat flex, flex & ext PT-OP-L Special Tests Start: 05/26/18 08:08 Freq: Status: Active Protocol: Document 05/26/18 08:59 [facility] (Rec: 05/26/18 09:50 [facility] [id number]) Special Tests Cervical Spine Special Tests Vertebral Artery Test Results negative Spurling's Test Test Results post for pain Alar Ligament Test Results neg Neural Special Tests- Upper Body Median Nerve Tension Test Results neg L; R positive Radial Nerve Tension Test Results neg B Ulnar Nerve Tension Test Results neg Upper Limb Tension Test Comments passive abd: R ~110; L~150 PT-OP-M Strength Start: 05/26/18 08:08 Freq: Status: Active Protocol: Document 05/26/18 08:59 [facility] (Rec: 05/26/18 09:50 [facility] [id number]) Shoulder Strength Shoulder Manual Muscle Testing Right Flexion 5 Normal Extension 4 Good Abduction (C5) 5 Normal External Rotation 4+ Good+ Internal Rotation 4+ Good+ Horizontal Adduction 4+ Good+ Left Flexion 5 Normal Extension 5 Normal Abduction (C5) 5 Normal External Rotation 5 Normal Internal Rotation 5 Normal Horizontal Adduction 5 Normal PT-OP-Q Treatments Start: 05/26/18 08:08 Freq: Status: Active Protocol: Document 06/19/18 12:39 [facility] (Rec: 06/19/18 12:48 [facility] [id number]) Therapeutic Exercises Supine Exercises rotations Supine Exercise Name end range rotations with overpressure Reps/Minutes 30 sec hold Standing Exercises flexion Standing Exercise Name w/small range HAbd for retraction Equipment Used L1 Reps/Minutes 8 shoulder ER Standing Exercise Name B ER Equipment Used L2 Reps/Minutes 20 Therapeutic Activity Therapeutic Activity birdwatching Name focus on posture & UE movemtn during bird watching Manual Therapy Treatment Soft Tissue Mobilization SOR Body Location SOR Mobilization Type Sustained Pressure Intensity/Depth Moderate cervical paraspinals Mobilization Type Rolling Intensity/Depth Moderate Comments FM with chin tuck Joint Mobilizations C1 Joint C1 Direction transverse L & UPA R FM SC Joint SC Direction caudal FM B C2 Joint C2 Direction L transverse FM T1-3 Joint T1-3 Direction PA FM PT-OP-R Modalities Start: 05/26/18 08:08 Freq: Status: Active Protocol: Document 06/19/18 12:39 [facility] (Rec: 06/19/18 12:48 [facility] [id number]) Hot Pack/Cold Pack Treatment Cold Pack Location cervical Patient Position Hooklying Treatment Duration (minutes) 10 PT-OP-T Assessment and Plan Start: 05/26/18 08:08 Freq: Status: Active Protocol: Document 06/19/18 12:39 [facility] (Rec: 06/19/18 12:48 [facility] [id number]) Physical Therapy Assessment Goals ROM Short Term Goal (STG) Indep With HEP STG Duration 06/26/18 Correction Goal (LTG) Pt will have WFL ROM to allow her to do her typical daily activities. LTG Duration 07/27/18 NDI Impairment neck disability index Short Term Goal (STG) 18/50 STG Duration 06/26/18 Parts Counter Representative Goal (LTG) to show improvement in functional ability LTG Duration 07/27/18 activities Impairment activities Short Term Goal (STG) Pt will be able to demonstrate good sleeping position and be able to sleep without waking d/t pain STG Duration 06/26/18 Correction Goal (LTG) Pt will be able to do gardening, time with friends, read, drive and watch TV w/ minimal complaints of pain. LTG Duration 07/27/18 Assessment Summary Assessment Pt required scapular correction for lifting up binoculars & scapular position to improve neck ext. Improved neck ext from 45 deg to 70 after manual treatment and improved flex from 50 deg to 62 after manual treatment. R rotation started at about 60% of range and inc to about 75% after treatmetn. Physical Therapy Plan Frequency and Duration Frequency of Treatment 2x/Week Duration of Treatment 2 months Plan of Care Start Date 05/26/18 Plan of Care End Date 07/27/18 Next Visit Focus/Plan Next Note Type Treatment Note Next Visit Plan cont to work cranial mobs & R rot
--- NOTE | 2018-06-29 10:29 | PT.OTN ---
Current Diagnoses Cervicalgia (06/29/18) Physical Therapy Treatment Note PT-OP-A Visit Information Start: 05/26/18 08:08 Freq: Status: Active Protocol: Document 06/29/18 09:50 [facility] (Rec: 06/29/18 10:29 [facility] [id number]) Out-Patient Physical Therapy Visit Information Visit Information Visit Type Treatment Note Visit Note 8 total Visit Start Time 09:45 Visit Stop Time 10:40 Total Visit Minutes 55 Visit Number 8 PT-OP-B Current Condition Start: 05/26/18 08:08 Freq: Status: Active Protocol: Document 05/26/18 08:59 [facility] (Rec: 05/26/18 09:50 [facility] [id number]) Current Condition History of Current Condition Onset Date 30 years ago Current Complaints neck pain History of Current Condition Pt reports straining her neck when working on their their house 3 years ago. Scapular pain 1 year ago she started therapy when pain got really bad on L side. She did PT and ent well and cont exercises, but noted pain is getting worse. Pt tried chiropractic treatment when she got back from a vacation at the end of December. She reports inc ROM but reports skull aches on R side that are most often at night that go down into R neck. She walks a lot and has no difficulty. 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 Reports being able just watch TV or conversing with friends is difficult d/t having to turn her head. Pt reports she rides her bike and wants to be able to look quickly Prior Treatments and Tests Xray done Future Testing and Treatments Planned PT & chiro Treatment Goals Patient/Caregiver Goals return to gardening, being able to talk to friends and watch TV with less issue, less difficulty with biking, be able to look up with binoculars to bird watching Personal Factors Other Personal Factors That May Effect Thumb pain B and trigger Therapy/Recovery finger sx PT-OP-C Subjective Start: 05/26/18 08:08 Freq: Status: Active Protocol: Document 06/29/18 09:50 [facility] (Rec: 06/29/18 10:29 [facility] [id number]) OP-PT Subjective Patient Comments Patient Comments Pt reports bird watching went well. Most difficulty when turning R to talk to friends. PT-OP-F Manual Assessment Start: 05/26/18 08:08 Freq: Status: Active Protocol: Document 05/26/18 08:59 [facility] (Rec: 05/26/18 09:50 [facility] [id number]) Manual Assessments Soft Tissue Assessment Soft Tissue Mobility Assessment overall cervical tightness significant on R>L Joint Mobility Assessment Joint Mobility Assessment elevated 1st rib R PT-OP-J Posture/Palpation/Skin Start: 05/26/18 08:08 Freq: Status: Active Protocol: Document 05/26/18 08:59 [facility] (Rec: 05/26/18 09:50 [facility] [id number]) Posture Evaluation [facility] Postural Classification System [facility] Postural Classifications Anterior/Posterior Elbow Flexion Test 2 PT-OP-K Range of Motion Start: 05/26/18 08:08 Freq: Status: Active Protocol: Document 05/26/18 08:59 [facility] (Rec: 05/26/18 09:50 [facility] [id number]) Cervical Spine Range of Motion Cervical Spine Active Degrees Testing Position Sitting Flexion 31 Extension 22 Rotation Left 30 Rotation Right 38 Lateral Flexion Left 20 Lateral Flexion Right 18 ROM Limitations Pain Comments pain R w/ R lat flex, flex & ext PT-OP-L Special Tests Start: 05/26/18 08:08 Freq: Status: Active Protocol: Document 05/26/18 08:59 [facility] (Rec: 05/26/18 09:50 [facility] [id number]) Special Tests Cervical Spine Special Tests Vertebral Artery Test Results negative Spurling's Test Test Results post for pain Alar Ligament Test Results neg Neural Special Tests- Upper Body Median Nerve Tension Test Results neg L; R positive Radial Nerve Tension Test Results neg B Ulnar Nerve Tension Test Results neg Upper Limb Tension Test Comments passive abd: R ~110; L~150 PT-OP-M Strength Start: 05/26/18 08:08 Freq: Status: Active Protocol: Document 05/26/18 08:59 [facility] (Rec: 05/26/18 09:50 [facility] [id number]) Shoulder Strength Shoulder Manual Muscle Testing Right Flexion 5 Normal Extension 4 Good Abduction (C5) 5 Normal External Rotation 4+ Good+ Internal Rotation 4+ Good+ Horizontal Adduction 4+ Good+ Left Flexion 5 Normal Extension 5 Normal Abduction (C5) 5 Normal External Rotation 5 Normal Internal Rotation 5 Normal Horizontal Adduction 5 Normal PT-OP-Q Treatments Start: 05/26/18 08:08 Freq: Status: Active Protocol: Document 06/29/18 09:50 [facility] (Rec: 06/29/18 10:29 [facility] [id number]) Manual Therapy Treatment Soft Tissue Mobilization cranial fascia Body Location cranial fascia Mobilization Type Myofascial Release scalenes Body Location scalenes R Mobilization Type Rolling SOR Body Location SOR Mobilization Type Sustained Pressure Intensity/Depth Moderate cervical paraspinals Mobilization Type Rolling Intensity/Depth Moderate Comments FM with chin tuck Joint Mobilizations C1 Joint C1 Direction transverse R& UPA R FM 1st rib Joint 1st rib R Direction caudal FM PT-OP-R Modalities Start: 05/26/18 08:08 Freq: Status: Active Protocol: Document 06/29/18 09:50 [facility] (Rec: 06/29/18 10:29 [facility] [id number]) Hot Pack/Cold Pack Treatment Hot Pack Location cervical Patient Position Hooklying Treatment Duration (minutes) 15 PT-OP-T Assessment and Plan Start: 05/26/18 08:08 Freq: Status: Active Protocol: Document 06/29/18 09:50 [facility] (Rec: 06/29/18 10:29 [facility] [id number]) Physical Therapy Assessment Goals ROM Short Term Goal (STG) Indep With HEP STG Duration 06/26/18 Residential Goal (LTG) Pt will have WFL ROM to allow her to do her typical daily activities. 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 LTG Duration 07/27/18 Assessment Summary Assessment Pt improves with ROM with mobilizations but does cont to have pain at end range & tightness. She had significant elevation of R 1st rib that improved with mobilization today. Physical Therapy Plan Frequency and Duration Frequency of Treatment 2x/Week Duration of Treatment 2 months Plan of Care Start Date 05/26/18 Plan of Care End Date 07/27/18 Next Visit Focus/Plan Next Note Type Treatment Note Next Visit Plan cranial & upper cervical mobility
--- NOTE | 2018-07-01 13:45 | PT.OTN ---
Current Diagnoses Cervicalgia (07/01/18) Physical Therapy Treatment Note PT-OP-A Visit Information Start: 05/26/18 08:08 Freq: Status: Active Protocol: Document 07/01/18 12:59 [facility] (Rec: 07/01/18 13:44 [facility] [id number]) Out-Patient Physical Therapy Visit Information Visit Information Visit Type Treatment Note Visit Note 9 total Visit Start Time 13:00 Visit Stop Time 13:55 Total Visit Minutes 55 Visit Number 03/02 PT-OP-B Current Condition Start: 05/26/18 08:08 Freq: Status: Active Protocol: Document 05/26/18 08:59 [facility] (Rec: 05/26/18 09:50 [facility] [id number]) Current Condition History of Current Condition Onset Date 30 years ago Current Complaints neck pain History of Current Condition Pt reports straining her neck when working on their their house 3 years ago. Scapular pain 1 year ago she started therapy when pain got really bad on L side. She did PT and ent well and cont exercises, but noted pain is getting worse. Pt tried chiropractic treatment when she got back from a vacation at the end of December. She reports inc ROM but reports skull aches on R side that are most often at night that go down into R neck. She walks a lot and has no difficulty. 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 Reports being able just watch TV or conversing with friends is difficult d/t having to turn her head. Pt reports she rides her bike and wants to be able to look quickly Prior Treatments and Tests Xray done Future Testing and Treatments Planned PT & chiro Treatment Goals Patient/Caregiver Goals return to gardening, being able to talk to friends and watch TV with less issue, less difficulty with biking, be able to look up with binoculars to bird watching Personal Factors Other Personal Factors That May Effect Thumb pain B and trigger Therapy/Recovery finger sx PT-OP-C Subjective Start: 05/26/18 08:08 Freq: Status: Active Protocol: Document 07/01/18 12:59 [facility] (Rec: 07/01/18 13:44 [facility] [id number]) OP-PT Subjective Patient Comments Patient Comments reports she noticed when cleaning off the table she had pain. PT-OP-F Manual Assessment Start: 05/26/18 08:08 Freq: Status: Active Protocol: Document 05/26/18 08:59 [facility] (Rec: 05/26/18 09:50 [facility] [id number]) Manual Assessments Soft Tissue Assessment Soft Tissue Mobility Assessment overall cervical tightness significant on R>L Joint Mobility Assessment Joint Mobility Assessment elevated 1st rib R PT-OP-J Posture/Palpation/Skin Start: 05/26/18 08:08 Freq: Status: Active Protocol: Document 05/26/18 08:59 [facility] (Rec: 05/26/18 09:50 [facility] [id number]) Posture Evaluation [facility] Postural Classification System Padmini Postural Classifications Anterior/Posterior Elbow Flexion Test 2 PT-OP-K Range of Motion Start: 05/26/18 08:08 Freq: Status: Active Protocol: Document 05/26/18 08:59 [facility] (Rec: 05/26/18 09:50 [facility] [id number]) Cervical Spine Range of Motion Cervical Spine Active Degrees Testing Position Sitting Flexion 31 Extension 22 Rotation Left 30 Rotation Right 38 Lateral Flexion Left 20 Lateral Flexion Right 18 ROM Limitations Pain Comments pain R w/ R lat flex, flex & ext PT-OP-L Special Tests Start: 05/26/18 08:08 Freq: Status: Active Protocol: Document 05/26/18 08:59 [facility] (Rec: 05/26/18 09:50 [facility] [id number]) Special Tests Cervical Spine Special Tests Vertebral Artery Test Results negative Spurling's Test Test Results post for pain Alar Ligament Test Results neg Neural Special Tests- Upper Body Median Nerve Tension Test Results neg L; R positive Radial Nerve Tension Test Results neg B Ulnar Nerve Tension Test Results neg Upper Limb Tension Test Comments passive abd: R ~110; L~150 PT-OP-M Strength Start: 05/26/18 08:08 Freq: Status: Active Protocol: Document 05/26/18 08:59 [facility] (Rec: 05/26/18 09:50 [facility] [id number]) Shoulder Strength Shoulder Manual Muscle Testing Right Flexion 5 Normal Extension 4 Good Abduction (C5) 5 Normal External Rotation 4+ Good+ Internal Rotation 4+ Good+ Horizontal Adduction 4+ Good+ Left Flexion 5 Normal Extension 5 Normal Abduction (C5) 5 Normal External Rotation 5 Normal Internal Rotation 5 Normal Horizontal Adduction 5 Normal PT-OP-Q Treatments Start: 05/26/18 08:08 Freq: Status: Active Protocol: Document 07/01/18 12:59 [facility] (Rec: 07/01/18 13:44 [facility] [id number]) Therapeutic Activity Therapeutic Activity bending over Comments edu on hip hinge for bending over and keeping shoulder blades together in neutral to reach & to push through hand that is supporting her. Manual Therapy Treatment Soft Tissue Mobilization SCM Body Location SCM Mobilization Type Rolling cranial fascia Body Location cranial fascia Mobilization Type Myofascial Release scalenes Body Location scalenes R Mobilization Type Rolling SOR Body Location SOR Mobilization Type Sustained Pressure Intensity/Depth Moderate UT/LS Body Location UT/LS R Mobilization Type Rolling Intensity/Depth Moderate cervical paraspinals Mobilization Type Rolling Intensity/Depth Moderate Comments FM with chin tuck Joint Mobilizations C2 Joint C2 Direction L transverse FM 1st rib Joint 1st rib R Direction caudal FM PT-OP-R Modalities Start: 05/26/18 08:08 Freq: Status: Active Protocol: Document 07/01/18 12:59 [facility] (Rec: 07/01/18 13:44 [facility] [id number]) Hot Pack/Cold Pack Treatment Hot Pack Location cervical Patient Position Hooklying Treatment Duration (minutes) 15 PT-OP-T Assessment and Plan Start: 05/26/18 08:08 Freq: Status: Active Protocol: Document 07/01/18 12:59 [facility] (Rec: 07/01/18 13:44 [facility] [id number]) Physical Therapy Assessment Goals ROM Short Term Goal (STG) Indep With HEP STG Duration 06/26/18 Clip Loading Machine Adjuster Goal (LTG) Pt will have WFL ROM to allow her to do her typical daily activities. LTG Duration 07/27/18 NDI Impairment neck disability index Short Term Goal (STG) 18/50 STG Duration 06/26/18 Custodial Goal (LTG) 8/50 to show improvement in functional ability LTG Duration 07/27/18 activities Impairment activities Short Term Goal (STG) Pt will be able to demonstrate good sleeping position and be able to sleep without waking d/t pain STG Duration 06/26/18 Clip Loading Machine Adjuster Goal (LTG) Pt will be able to do gardening, time with friends, read, drive and watch TV w/ minimal complaints of pain. LTG Duration 07/27/18 Assessment Summary Assessment Pt is limited by R sided mm folding & joint mobility for R rotation>L. She cont to have significant tightness and dec mobility of R side Physical Therapy Plan Frequency and Duration Frequency of Treatment 2x/Week Duration of Treatment 2 months Plan of Care Start Date 05/26/18 Plan of Care End Date 07/27/18 Next Visit Focus/Plan Next Note Type Progress Note Next Visit Plan upper thoracic rot mobs & upper cervical/cranial
--- NOTE | 2018-07-06 10:37 | PT.OTN ---
Current Diagnoses Cervicalgia (07/01/18) Physical Therapy Treatment Note PT-OP-A Visit Information Start: 05/26/18 08:08 Freq: Status: Active Protocol: Document 07/06/18 09:48 [facility] (Rec: 07/06/18 10:37 [facility] [id number]) Out-Patient Physical Therapy Visit Information Visit Information Visit Type Treatment Note Visit Note 9 total Visit Start Time 09:45 Visit Stop Time 10:40 Total Visit Minutes 55 Visit Number 07/02 PT-OP-B Current Condition Start: 05/26/18 08:08 Freq: Status: Active Protocol: Document 05/26/18 08:59 [facility] (Rec: 05/26/18 09:50 [facility] [id number]) Current Condition History of Current Condition Onset Date 30 years ago Current Complaints neck pain History of Current Condition Pt reports straining her neck when working on their their house 3 years ago. Scapular pain 1 year ago she started therapy when pain got really bad on L side. She did PT and ent well and cont exercises, but noted pain is getting worse. Pt tried chiropractic treatment when she got back from a vacation at the end of December. She reports inc ROM but reports skull aches on R side that are most often at night that go down into R neck. She walks a lot and has no difficulty. 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 Reports being able just watch TV or conversing with friends is difficult d/t having to turn her head. Pt reports she rides her bike and wants to be able to look quickly Prior Treatments and Tests Xray done Future Testing and Treatments Planned PT & chiro Treatment Goals Patient/Caregiver Goals return to gardening, being able to talk to friends and watch TV with less issue, less difficulty with biking, be able to look up with binoculars to bird watching Personal Factors Other Personal Factors That May Effect Thumb pain B and trigger Therapy/Recovery finger sx PT-OP-C Subjective Start: 05/26/18 08:08 Freq: Status: Active Protocol: Document 07/06/18 09:48 [facility] (Rec: 07/06/18 10:37 [facility] [id number]) OP-PT Subjective Patient Comments Patient Comments Reports soreness after last session but it went away later that day Patient Questionnaires Neck Disability Index NDI Score 12 Neck Disability Index Impairment 20 to 39% Impaired (Score 10- 19) PT-OP-F Manual Assessment Start: 05/26/18 08:08 Freq: Status: Active Protocol: Document 05/26/18 08:59 [facility] (Rec: 05/26/18 09:50 [facility] [id number]) Manual Assessments Soft Tissue Assessment Soft Tissue Mobility Assessment overall cervical tightness significant on R>L Joint Mobility Assessment Joint Mobility Assessment elevated 1st rib R PT-OP-J Posture/Palpation/Skin Start: 05/26/18 08:08 Freq: Status: Active Protocol: Document 05/26/18 08:59 [facility] (Rec: 05/26/18 09:50 [facility] [id number]) Posture Evaluation P[facility]i Postural Classification System Padmini Postural Classifications Anterior/Posterior Elbow Flexion Test 2 PT-OP-K Range of Motion Start: 05/26/18 08:08 Freq: Status: Active Protocol: Document 07/06/18 09:48 [facility] (Rec: 07/06/18 10:37 [facility] [id number]) Cervical Spine Range of Motion Cervical Spine Active Degrees Testing Position Sitting Flexion 60 Extension 60 Rotation Left 69 Rotation Right 47 Lateral Flexion Left 40 Lateral Flexion Right 32 PT-OP-L Special Tests Start: 05/26/18 08:08 Freq: Status: Active Protocol: Document 05/26/18 08:59 [facility] (Rec: 05/26/18 09:50 [facility] [id number]) Special Tests Cervical Spine Special Tests Vertebral Artery Test Results negative Spurling's Test Test Results post for pain Alar Ligament Test Results neg Neural Special Tests- Upper Body Median Nerve Tension Test Results neg L; R positive Radial Nerve Tension Test Results neg B Ulnar Nerve Tension Test Results neg Upper Limb Tension Test Comments passive abd: R ~110; L~150 PT-OP-M Strength Start: 05/26/18 08:08 Freq: Status: Active Protocol: Document 07/06/18 09:48 [facility] (Rec: 07/06/18 10:37 [facility] [id number]) Shoulder Strength Shoulder Manual Muscle Testing Right Flexion 5 Normal Extension 5 Normal Abduction (C5) 5 Normal Adduction 5 Normal External Rotation 4+ Good+ Horizontal Abduction 4+ Good+ Horizontal Adduction 5 Normal Left Flexion 5 Normal Extension 5 Normal Abduction (C5) 5 Normal Adduction 5 Normal External Rotation 4+ Good+ Internal Rotation 5 Normal Horizontal Abduction 5 Normal Horizontal Adduction 5 Normal PT-OP-Q Treatments Start: 05/26/18 08:08 Freq: Status: Active Protocol: Document 07/06/18 09:48 [facility] (Rec: 07/06/18 10:37 [facility] [id number]) Therapeutic Exercises Supine Exercises axial elongation Supine Exercise Name axial elongation Reps/Minutes 10x 2 sec hold Standing Exercises shoulder flex Standing Exercise Name B w/retraciton Equipment Used lvl 1 Reps/Minutes 10 Manual Therapy Treatment Soft Tissue Mobilization cranial fascia Body Location cranial fascia Mobilization Type Myofascial Release SOR Body Location SOR Mobilization Type Sustained Pressure Intensity/Depth Moderate Joint Mobilizations cervical Joint C3-7 Direction L transverse FM T1-3 Joint T1-3 Direction L transverse FM PT-OP-R Modalities Start: 05/26/18 08:08 Freq: Status: Active Protocol: Document 07/06/18 09:48 [facility] (Rec: 07/06/18 10:37 [facility] [id number]) Hot Pack/Cold Pack Treatment Hot Pack Location cervical Patient Position Hooklying Treatment Duration (minutes) 15 PT-OP-T Assessment and Plan Start: 05/26/18 08:08 Freq: Status: Active Protocol: Document 07/06/18 09:48 [facility] (Rec: 07/06/18 10:37 [facility] [id number]) Physical Therapy Assessment Goals ROM Short Term Goal (STG) Indep With HEP STG Duration 06/26/18- achieved progressing Alf Goal (LTG) Pt will have WFL ROM to allow her to do her typical daily activities. LTG Duration 07/27/18- improving NDI Impairment neck disability index Short Term Goal (STG) 18/50 STG Duration achieved Alf Goal (LTG) 8/50 to show improvement in functional ability LTG Duration 07/27/18-improved activities Impairment activities Short Term Goal (STG) Pt will be able to demonstrate good sleeping position and be able to sleep without waking d/t pain STG Duration achieved Alf Goal (LTG) Pt will be able to do gardening, time with friends, read, drive and watch TV w/ minimal complaints of pain. LTG Duration 07/27/18-improving Assessment Summary Assessment Pt improved with ROM to R rot to 74 deg after mobilizations. She does report soreness after mobilizations but it does subside within a day. She is improving overall in UE strength but cont to lack cervical stability Physical Therapy Plan Frequency and Duration Frequency of Treatment 2x/Week Duration of Treatment 2 months Plan of Care Start Date 05/26/18 Plan of Care End Date 07/27/18 Next Visit Focus/Plan Next Note Type Treatment Note Next Visit Plan advance R rotation & SB & cervical stability
--- NOTE | 2018-07-08 10:30 | PT.OTN ---
Current Diagnoses Cervicalgia (07/08/18) Physical Therapy Treatment Note PT-OP-A Visit Information Start: 05/26/18 08:08 Freq: Status: Active Protocol: Document 07/08/18 10:26 [facility] (Rec: 07/08/18 10:30 [facility] [id number]) Out-Patient Physical Therapy Visit Information Visit Information Visit Type Treatment Note Visit Note 11 total Visit Start Time 09:45 Visit Stop Time 10:35 Total Visit Minutes 50 Visit Number 08/02 PT-OP-B Current Condition Start: 05/26/18 08:08 Freq: Status: Active Protocol: Document 05/26/18 08:59 [facility] (Rec: 05/26/18 09:50 [facility] [id number]) Current Condition History of Current Condition Onset Date 30 years ago Current Complaints neck pain History of Current Condition Pt reports straining her neck when working on their their house 3 years ago. Scapular pain 1 year ago she started therapy when pain got really bad on L side. She did PT and ent well and cont exercises, but noted pain is getting worse. Pt tried chiropractic treatment when she got back from a vacation at the end of December. She reports inc ROM but reports skull aches on R side that are most often at night that go down into R neck. She walks a lot and has no difficulty. 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 Reports being able just watch TV or conversing with friends is difficult d/t having to turn her head. Pt reports she rides her bike and wants to be able to look quickly Prior Treatments and Tests Xray done Future Testing and Treatments Planned PT & chiro Treatment Goals Patient/Caregiver Goals return to gardening, being able to talk to friends and watch TV with less issue, less difficulty with biking, be able to look up with binoculars to bird watching Personal Factors Other Personal Factors That May Effect Thumb pain B and trigger Therapy/Recovery finger sx PT-OP-C Subjective Start: 05/26/18 08:08 Freq: Status: Active Protocol: Document 07/08/18 10:26 [facility] (Rec: 07/08/18 10:30 [facility] [id number]) OP-PT Subjective Patient Comments Patient Comments Pt reports soreness after last session but notes still difficulty with rotation of head PT-OP-F Manual Assessment Start: 05/26/18 08:08 Freq: Status: Active Protocol: Document 05/26/18 08:59 [facility] (Rec: 05/26/18 09:50 [facility] [id number]) Manual Assessments Soft Tissue Assessment Soft Tissue Mobility Assessment overall cervical tightness significant on R>L Joint Mobility Assessment Joint Mobility Assessment elevated 1st rib R PT-OP-J Posture/Palpation/Skin Start: 05/26/18 08:08 Freq: Status: Active Protocol: Document 05/26/18 08:59 [facility] (Rec: 05/26/18 09:50 [facility] [id number]) Posture Evaluation [facility] Postural Classification System Padmini Postural Classifications Anterior/Posterior Elbow Flexion Test 2 PT-OP-K Range of Motion Start: 05/26/18 08:08 Freq: Status: Active Protocol: Document 07/06/18 09:48 [facility] (Rec: 07/06/18 10:37 [facility] [id number]) Cervical Spine Range of Motion Cervical Spine Active Degrees Testing Position Sitting Flexion 60 Extension 60 Rotation Left 69 Rotation Right 47 Lateral Flexion Left 40 Lateral Flexion Right 32 PT-OP-L Special Tests Start: 05/26/18 08:08 Freq: Status: Active Protocol: Document 05/26/18 08:59 [facility] (Rec: 05/26/18 09:50 [facility] [id number]) Special Tests Cervical Spine Special Tests Vertebral Artery Test Results negative Spurling's Test Test Results post for pain Alar Ligament Test Results neg Neural Special Tests- Upper Body Median Nerve Tension Test Results neg L; R positive Radial Nerve Tension Test Results neg B Ulnar Nerve Tension Test Results neg Upper Limb Tension Test Comments passive abd: R ~110; L~150 PT-OP-M Strength Start: 05/26/18 08:08 Freq: Status: Active Protocol: Document 07/06/18 09:48 [facility] (Rec: 07/06/18 10:37 [facility] [id number]) Shoulder Strength Shoulder Manual Muscle Testing Right Flexion 5 Normal Extension 5 Normal Abduction (C5) 5 Normal Adduction 5 Normal External Rotation 4+ Good+ Horizontal Abduction 4+ Good+ Horizontal Adduction 5 Normal Left Flexion 5 Normal Extension 5 Normal Abduction (C5) 5 Normal Adduction 5 Normal External Rotation 4+ Good+ Internal Rotation 5 Normal Horizontal Abduction 5 Normal Horizontal Adduction 5 Normal PT-OP-Q Treatments Start: 05/26/18 08:08 Freq: Status: Active Protocol: Document 07/08/18 10:26 [facility] (Rec: 07/08/18 10:30 [facility] [id number]) Therapeutic Exercises Supine Exercises rotations Supine Exercise Name end range rotations with overpressure Reps/Minutes 30 sec hold Sitting Exercises stretches Sitting Exercise Name rotation ROM B Standing Exercises shoulder flex Standing Exercise Name B w/retraciton Equipment Used lvl 1 Reps/Minutes 10 Manual Therapy Treatment Soft Tissue Mobilization SCM Body Location SCM Mobilization Type Rolling scalenes Body Location scalenes R Mobilization Type Rolling Joint Mobilizations cervical Joint C3-7 Direction R AP FM individually C2 Joint C2 Direction AP R FM T1-3 Joint T1-3 Direction L transverse FM PT-OP-R Modalities Start: 05/26/18 08:08 Freq: Status: Active Protocol: Document 07/08/18 10:26 [facility] (Rec: 07/08/18 10:30 [facility] [id number]) Hot Pack/Cold Pack Treatment Cold Pack Location cervical Patient Position Hooklying Treatment Duration (minutes) 10 PT-OP-T Assessment and Plan Start: 05/26/18 08:08 Freq: Status: Active Protocol: Document 07/08/18 10:26 [facility] (Rec: 07/08/18 10:30 [facility] [id number]) Physical Therapy Assessment Goals ROM Short Term Goal (STG) Indep With HEP STG Duration 06/26/18- achieved progressing Half-Way Goal (LTG) Pt will have WFL ROM to allow her to do her typical daily activities. 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 LTG Duration 07/27/18-improving Assessment Summary Assessment Improved performance of exercises with cueing. Pt improved R rotation with mobilizations Physical Therapy Plan Frequency and Duration Frequency of Treatment 2x/Week Duration of Treatment 2 months Plan of Care Start Date 05/26/18 Plan of Care End Date 07/27/18 Next Visit Focus/Plan Next Note Type Treatment Note Next Visit Plan upper cervical mobs for rotation R
--- NOTE | 2018-07-13 10:41 | PT.OTN ---
Current Diagnoses Cervicalgia (07/13/18) Physical Therapy Treatment Note PT-OP-A Visit Information Start: 05/26/18 08:08 Freq: Status: Active Protocol: Document 07/13/18 09:44 [facility] (Rec: 07/13/18 10:41 [facility] [id number]) Out-Patient Physical Therapy Visit Information Visit Information Visit Type Treatment Note Visit Note 12 total Visit Start Time 09:45 Visit Stop Time 10:40 Total Visit Minutes 55 Visit Number 08/30 PT-OP-B Current Condition Start: 05/26/18 08:08 Freq: Status: Active Protocol: Document 05/26/18 08:59 [facility] (Rec: 05/26/18 09:50 [facility] [id number]) Current Condition History of Current Condition Onset Date 30 years ago Current Complaints neck pain History of Current Condition Pt reports straining her neck when working on their their house 3 years ago. Scapular pain 1 year ago she started therapy when pain got really bad on L side. She did PT and ent well and cont exercises, but noted pain is getting worse. Pt tried chiropractic treatment when she got back from a vacation at the end of December. She reports inc ROM but reports skull aches on R side that are most often at night that go down into R neck. She walks a lot and has no difficulty. 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 Reports being able just watch TV or conversing with friends is difficult d/t having to turn her head. Pt reports she rides her bike and wants to be able to look quickly Prior Treatments and Tests Xray done Future Testing and Treatments Planned PT & chiro Treatment Goals Patient/Caregiver Goals return to gardening, being able to talk to friends and watch TV with less issue, less difficulty with biking, be able to look up with binoculars to bird watching Personal Factors Other Personal Factors That May Effect Thumb pain B and trigger Therapy/Recovery finger sx PT-OP-C Subjective Start: 05/26/18 08:08 Freq: Status: Active Protocol: Document 07/13/18 09:44 [facility] (Rec: 07/13/18 10:41 [facility] [id number]) OP-PT Subjective Patient Comments Patient Comments Pt reports still uncomfortable all the time. PT-OP-F Manual Assessment Start: 05/26/18 08:08 Freq: Status: Active Protocol: Document 05/26/18 08:59 [facility] (Rec: 05/26/18 09:50 [facility] [id number]) Manual Assessments Soft Tissue Assessment Soft Tissue Mobility Assessment overall cervical tightness significant on R>L Joint Mobility Assessment Joint Mobility Assessment elevated 1st rib R PT-OP-J Posture/Palpation/Skin Start: 05/26/18 08:08 Freq: Status: Active Protocol: Document 05/26/18 08:59 [facility] (Rec: 05/26/18 09:50 [facility] [id number]) Posture Evaluation [facility] Postural Classification System Padmini Postural Classifications Anterior/Posterior Elbow Flexion Test 2 PT-OP-K Range of Motion Start: 05/26/18 08:08 Freq: Status: Active Protocol: Document 07/06/18 09:48 [facility] (Rec: 07/06/18 10:37 [facility] [id number]) Cervical Spine Range of Motion Cervical Spine Active Degrees Testing Position Sitting Flexion 60 Extension 60 Rotation Left 69 Rotation Right 47 Lateral Flexion Left 40 Lateral Flexion Right 32 PT-OP-L Special Tests Start: 05/26/18 08:08 Freq: Status: Active Protocol: Document 05/26/18 08:59 [facility] (Rec: 05/26/18 09:50 [facility] [id number]) Special Tests Cervical Spine Special Tests Vertebral Artery Test Results negative Spurling's Test Test Results post for pain Alar Ligament Test Results neg Neural Special Tests- Upper Body Median Nerve Tension Test Results neg L; R positive Radial Nerve Tension Test Results neg B Ulnar Nerve Tension Test Results neg Upper Limb Tension Test Comments passive abd: R ~110; L~150 PT-OP-M Strength Start: 05/26/18 08:08 Freq: Status: Active Protocol: Document 07/06/18 09:48 [facility] (Rec: 07/06/18 10:37 [facility] [id number]) Shoulder Strength Shoulder Manual Muscle Testing Right Flexion 5 Normal Extension 5 Normal Abduction (C5) 5 Normal Adduction 5 Normal External Rotation 4+ Good+ Horizontal Abduction 4+ Good+ Horizontal Adduction 5 Normal Left Flexion 5 Normal Extension 5 Normal Abduction (C5) 5 Normal Adduction 5 Normal External Rotation 4+ Good+ Internal Rotation 5 Normal Horizontal Abduction 5 Normal Horizontal Adduction 5 Normal PT-OP-Q Treatments Start: 05/26/18 08:08 Freq: Status: Active Protocol: Document 07/13/18 09:44 [facility] (Rec: 07/13/18 10:41 [facility] [id number]) Therapeutic Exercises Supine Exercises foam roll Supine Exercise Name flex, abd, Habd Reps/Minutes 10 axial elongation Supine Exercise Name axial elongation Reps/Minutes 10x 2 sec hold Comments chin tuck with head support Manual Therapy Treatment Soft Tissue Mobilization SCM Body Location SCM Mobilization Type Rolling Joint Mobilizations ribs 2-3 Joint 2nd and 3rd rib Direction caudal FM C2 Joint C2 Direction transverse L FM 1st rib Joint 1st rib R Direction caudal FM Self-Care/Home Management Treatment Education Other Education posture education & positioning, discussion of talking with doctor about other possible treatments PT-OP-R Modalities Start: 05/26/18 08:08 Freq: Status: Active Protocol: Document 07/13/18 09:44 [facility] (Rec: 07/13/18 10:41 [facility] [id number]) Hot Pack/Cold Pack Treatment Hot Pack Location cervical Patient Position Hooklying Treatment Duration (minutes) 15 PT-OP-T Assessment and Plan Start: 05/26/18 08:08 Freq: Status: Active Protocol: Document 07/13/18 09:44 [facility] (Rec: 07/13/18 10:41 [facility] [id number]) Physical Therapy Assessment Goals ROM Short Term Goal (STG) Indep With HEP STG Duration 06/26/18- achieved progressing Correction Goal (LTG) Pt will have WFL ROM to allow her to do her typical daily activities. LTG Duration 07/27/18- improving NDI Impairment neck disability index Short Term Goal (STG) 18/50 STG Duration achieved Sales And Marketing Executive Goal (LTG) 8/50 to show improvement in functional ability LTG Duration 07/27/18-improved activities Impairment activities Short Term Goal (STG) Pt will be able to demonstrate good sleeping position and be able to sleep without waking d/t pain STG Duration achieved Correction Goal (LTG) Pt will be able to do gardening, time with friends, read, drive and watch TV w/ minimal complaints of pain. LTG Duration 07/27/18-improving Assessment Summary Assessment Pt was able to rotate actively in supine without pain but not in sitting. Still unable to do axial elongation without head support as she does not have appropriate stabilizers Physical Therapy Plan Frequency and Duration Frequency of Treatment 2x/Week Duration of Treatment 2 months Plan of Care Start Date 05/26/18 Plan of Care End Date 07/27/18 Next Visit Focus/Plan Next Note Type Treatment Note Next Visit Plan Cont to work on seated rotation
--- NOTE | 2018-07-20 13:45 | PT.OTN ---
Current Diagnoses Cervicalgia (07/20/18) Physical Therapy Treatment Note PT-OP-A Visit Information Start: 05/26/18 08:08 Freq: Status: Active Protocol: Document 07/20/18 13:35 [facility] (Rec: 07/20/18 13:45 [facility] [id number]) Out-Patient Physical Therapy Visit Information Visit Information Visit Type Treatment Note Visit Note 12 total Visit Start Time 09:45 Visit Stop Time 10:40 Total Visit Minutes 55 Visit Number 09/30 PT-OP-B Current Condition Start: 05/26/18 08:08 Freq: Status: Active Protocol: Document 05/26/18 08:59 [facility] (Rec: 05/26/18 09:50 [facility] [id number]) Current Condition History of Current Condition Onset Date 30 years ago Current Complaints neck pain History of Current Condition Pt reports straining her neck when working on their their house 3 years ago. Scapular pain 1 year ago she started therapy when pain got really bad on L side. She did PT and ent well and cont exercises, but noted pain is getting worse. Pt tried chiropractic treatment when she got back from a vacation at the end of December. She reports inc ROM but reports skull aches on R side that are most often at night that go down into R neck. She walks a lot and has no difficulty. 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 Reports being able just watch TV or conversing with friends is difficult d/t having to turn her head. Pt reports she rides her bike and wants to be able to look quickly Prior Treatments and Tests Xray done Future Testing and Treatments Planned PT & chiro Treatment Goals Patient/Caregiver Goals return to gardening, being able to talk to friends and watch TV with less issue, less difficulty with biking, be able to look up with binoculars to bird watching Personal Factors Other Personal Factors That May Effect Thumb pain B and trigger Therapy/Recovery finger sx PT-OP-C Subjective Start: 05/26/18 08:08 Freq: Status: Active Protocol: Document 07/20/18 13:35 [facility] (Rec: 07/20/18 13:45 [facility] [id number]) OP-PT Subjective Patient Comments Patient Comments Pt reports overall doing well with rotations on bike etc, but Patient Reported Progress Improving PT-OP-F Manual Assessment Start: 05/26/18 08:08 Freq: Status: Active Protocol: Document 05/26/18 08:59 [facility] (Rec: 05/26/18 09:50 [facility] [id number]) Manual Assessments Soft Tissue Assessment Soft Tissue Mobility Assessment overall cervical tightness significant on R>L Joint Mobility Assessment Joint Mobility Assessment elevated 1st rib R PT-OP-J Posture/Palpation/Skin Start: 05/26/18 08:08 Freq: Status: Active Protocol: Document 05/26/18 08:59 [facility] (Rec: 05/26/18 09:50 [facility] [id number]) Posture Evaluation [facility] Postural Classification System Padmini Postural Classifications Anterior/Posterior Elbow Flexion Test 2 PT-OP-K Range of Motion Start: 05/26/18 08:08 Freq: Status: Active Protocol: Document 07/06/18 09:48 [facility] (Rec: 07/06/18 10:37 [facility] [id number]) Cervical Spine Range of Motion Cervical Spine Active Degrees Testing Position Sitting Flexion 60 Extension 60 Rotation Left 69 Rotation Right 47 Lateral Flexion Left 40 Lateral Flexion Right 32 PT-OP-L Special Tests Start: 05/26/18 08:08 Freq: Status: Active Protocol: Document 05/26/18 08:59 [facility] (Rec: 05/26/18 09:50 [facility] [id number]) Special Tests Cervical Spine Special Tests Vertebral Artery Test Results negative Spurling's Test Test Results post for pain Alar Ligament Test Results neg Neural Special Tests- Upper Body Median Nerve Tension Test Results neg L; R positive Radial Nerve Tension Test Results neg B Ulnar Nerve Tension Test Results neg Upper Limb Tension Test Comments passive abd: R ~110; L~150 PT-OP-M Strength Start: 05/26/18 08:08 Freq: Status: Active Protocol: Document 07/06/18 09:48 [facility] (Rec: 07/06/18 10:37 [facility] [id number]) Shoulder Strength Shoulder Manual Muscle Testing Right Flexion 5 Normal Extension 5 Normal Abduction (C5) 5 Normal Adduction 5 Normal External Rotation 4+ Good+ Horizontal Abduction 4+ Good+ Horizontal Adduction 5 Normal Left Flexion 5 Normal Extension 5 Normal Abduction (C5) 5 Normal Adduction 5 Normal External Rotation 4+ Good+ Internal Rotation 5 Normal Horizontal Abduction 5 Normal Horizontal Adduction 5 Normal PT-OP-Q Treatments Start: 05/26/18 08:08 Freq: Status: Active Protocol: Document 07/20/18 13:35 [facility] (Rec: 07/20/18 13:45 [facility] [id number]) Therapeutic Exercises Supine Exercises axial elongation Supine Exercise Name axial elongation Equipment Used mult reps to try to get good position Reps/Minutes w/gradual progression of less assistance Comments chin tuck with head support Therapeutic Activity Therapeutic Activity bending over Name standing & on knees Comments edu on hip hinge for bending over and keeping shoulder blades together in neutral to reach & to push through hand that is supporting her. Manual Therapy Treatment Soft Tissue Mobilization cervical paraspinals Mobilization Type Rolling Intensity/Depth Moderate Comments FM with chin tuck Joint Mobilizations cervical Joint C4-5 Direction R AP FM individually C2 Joint C2 Direction transverse L FM T1-3 Joint T1 Direction L transverse FM PT-OP-R Modalities Start: 05/26/18 08:08 Freq: Status: Active Protocol: Document 07/20/18 13:35 [facility] (Rec: 07/20/18 13:45 [facility] [id number]) Hot Pack/Cold Pack Treatment Hot Pack Location cervical Patient Position Hooklying Treatment Duration (minutes) 15 PT-OP-T Assessment and Plan Start: 05/26/18 08:08 Freq: Status: Active Protocol: Document 07/20/18 13:35 [facility] (Rec: 07/20/18 13:45 [facility] [id number]) Physical Therapy Assessment Goals ROM Short Term Goal (STG) Indep With HEP STG Duration 06/26/18- achieved progressing Senior Living Goal (LTG) Pt will have WFL ROM to allow her to do her typical daily activities. LTG Duration 07/27/18- improving NDI Impairment neck disability index Short Term Goal (STG) 18/50 STG Duration achieved Improvement Coordinator Goal (LTG) 8/50 to show improvement in functional ability LTG Duration 07/27/18-improved activities Impairment activities Short Term Goal (STG) Pt will be able to demonstrate good sleeping position and be able to sleep without waking d/t pain STG Duration achieved Senior Living Goal (LTG) Pt will be able to do gardening, time with friends, read, drive and watch TV w/ minimal complaints of pain. LTG Duration 07/27/18-improving Assessment Summary Assessment Pt requires cueing for positioning of body with daily tasks of avoiding utilizing only neck ROM to visulize activities in front of her. Improved SB to R to equal to to L after mobilizations and improved rotation. Physical Therapy Plan Frequency and Duration Frequency of Treatment 2x/Week Duration of Treatment 2 months Plan of Care Start Date 05/26/18 Plan of Care End Date 07/27/18 Next Visit Focus/Plan Next Note Type Treatment Note Next Visit Plan plank position, quadruped position, prone prop position to help develop stability
--- NOTE | 2018-07-27 13:53 | PT.OTN ---
Current Diagnoses Cervicalgia (07/27/18) Physical Therapy Treatment Note PT-OP-A Visit Information Start: 05/26/18 08:08 Freq: Status: Active Protocol: Document 07/27/18 11:16 [facility] (Rec: 07/27/18 13:53 [facility] [id number]) Out-Patient Physical Therapy Visit Information Visit Information Visit Type Treatment Note Visit Note 14 total Visit Start Time 11:15 Visit Stop Time 12:10 Total Visit Minutes 55 Visit Number 10/30 PT-OP-B Current Condition Start: 05/26/18 08:08 Freq: Status: Active Protocol: Document 05/26/18 08:59 [facility] (Rec: 05/26/18 09:50 [facility] [id number]) Current Condition History of Current Condition Onset Date 30 years ago Current Complaints neck pain History of Current Condition Pt reports straining her neck when working on their their house 3 years ago. Scapular pain 1 year ago she started therapy when pain got really bad on L side. She did PT and ent well and cont exercises, but noted pain is getting worse. Pt tried chiropractic treatment when she got back from a vacation at the end of December. She reports inc ROM but reports skull aches on R side that are most often at night that go down into R neck. She walks a lot and has no difficulty. 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 Reports being able just watch TV or conversing with friends is difficult d/t having to turn her head. Pt reports she rides her bike and wants to be able to look quickly Prior Treatments and Tests Xray done Future Testing and Treatments Planned PT & chiro Treatment Goals Patient/Caregiver Goals return to gardening, being able to talk to friends and watch TV with less issue, less difficulty with biking, be able to look up with binoculars to bird watching Personal Factors Other Personal Factors That May Effect Thumb pain B and trigger Therapy/Recovery finger sx PT-OP-C Subjective Start: 05/26/18 08:08 Freq: Status: Active Protocol: Document 07/27/18 11:16 [facility] (Rec: 07/27/18 13:53 [facility] [id number]) OP-PT Subjective Patient Comments Patient Comments Pt unsure if she is doing axial elongation exercise right and has been sore. PT-OP-F Manual Assessment Start: 05/26/18 08:08 Freq: Status: Active Protocol: Document 05/26/18 08:59 [facility] (Rec: 05/26/18 09:50 [facility] [id number]) Manual Assessments Soft Tissue Assessment Soft Tissue Mobility Assessment overall cervical tightness significant on R>L Joint Mobility Assessment Joint Mobility Assessment elevated 1st rib R PT-OP-J Posture/Palpation/Skin Start: 05/26/18 08:08 Freq: Status: Active Protocol: Document 05/26/18 08:59 [facility] (Rec: 05/26/18 09:50 [facility] [id number]) Posture Evaluation [facility] Postural Classification System Padmini Postural Classifications Anterior/Posterior Elbow Flexion Test 2 PT-OP-K Range of Motion Start: 05/26/18 08:08 Freq: Status: Active Protocol: Document 07/06/18 09:48 [facility] (Rec: 07/06/18 10:37 [facility] [id number]) Cervical Spine Range of Motion Cervical Spine Active Degrees Testing Position Sitting Flexion 60 Extension 60 Rotation Left 69 Rotation Right 47 Lateral Flexion Left 40 Lateral Flexion Right 32 PT-OP-L Special Tests Start: 05/26/18 08:08 Freq: Status: Active Protocol: Document 05/26/18 08:59 [facility] (Rec: 05/26/18 09:50 [facility] [id number]) Special Tests Cervical Spine Special Tests Vertebral Artery Test Results negative Spurling's Test Test Results post for pain Alar Ligament Test Results neg Neural Special Tests- Upper Body Median Nerve Tension Test Results neg L; R positive Radial Nerve Tension Test Results neg B Ulnar Nerve Tension Test Results neg Upper Limb Tension Test Comments passive abd: R ~110; L~150 PT-OP-M Strength Start: 05/26/18 08:08 Freq: Status: Active Protocol: Document 07/06/18 09:48 [facility] (Rec: 07/06/18 10:37 [facility] [id number]) Shoulder Strength Shoulder Manual Muscle Testing Right Flexion 5 Normal Extension 5 Normal Abduction (C5) 5 Normal Adduction 5 Normal External Rotation 4+ Good+ Horizontal Abduction 4+ Good+ Horizontal Adduction 5 Normal Left Flexion 5 Normal Extension 5 Normal Abduction (C5) 5 Normal Adduction 5 Normal External Rotation 4+ Good+ Internal Rotation 5 Normal Horizontal Abduction 5 Normal Horizontal Adduction 5 Normal PT-OP-Q Treatments Start: 05/26/18 08:08 Freq: Status: Active Protocol: Document 07/27/18 11:16 [facility] (Rec: 07/27/18 13:53 [facility] [id number]) Therapeutic Exercises Supine Exercises axial elongation Supine Exercise Name axial elongation Equipment Used mult reps to try to get good position Reps/Minutes w/gradual progression of less assistance Comments chin tuck with head support Sitting Exercises axial elongation Sitting Exercise Name chin tuck for positioning Other Exercises quadruped Other Exercise Name quad scapular positioning Comments w/focus on neutral head position prone prop Other Exercise Name scapular depression & neutral neck stability Comments stopped d/t unable to stabilize with significant cueing Manual Therapy Treatment Soft Tissue Mobilization SCM Body Location SCM Mobilization Type Rolling SOR Body Location SOR Mobilization Type Sustained Pressure Intensity/Depth Moderate cervical paraspinals Mobilization Type Rolling Intensity/Depth Moderate Comments FM with chin tuck Manual Traction Cervical Body Position Supine Reps/Duration 2 min PT-OP-R Modalities Start: 05/26/18 08:08 Freq: Status: Active Protocol: Document 07/27/18 11:16 [facility] (Rec: 07/27/18 13:53 [facility] [id number]) Spinal Traction Traction Treatment Cervical Method Mechanical Patient Position Hooklying Force Applied (Pounds) 12 Duration of Treatment (Minutes) 10 PT-OP-T Assessment and Plan Start: 05/26/18 08:08 Freq: Status: Active Protocol: Document 07/27/18 11:16 [facility] (Rec: 07/27/18 13:53 [facility] [id number]) Physical Therapy Assessment Goals ROM Short Term Goal (STG) Indep With HEP STG Duration 06/26/18- achieved progressing Halfway Goal (LTG) Pt will have WFL ROM to allow her to do her typical daily activities. LTG Duration 07/27/18- improving NDI Impairment neck disability index Short Term Goal (STG) 18/50 STG Duration achieved Halfway Goal (LTG) 8/50 to show improvement in functional ability LTG Duration 07/27/18-improved activities Impairment activities Short Term Goal (STG) Pt will be able to demonstrate good sleeping position and be able to sleep without waking d/t pain STG Duration achieved Halfway Goal (LTG) Pt will be able to do gardening, time with friends, read, drive and watch TV w/ minimal complaints of pain. LTG Duration 07/27/18-improving Assessment Summary Assessment Pt cont to have significant difficulty with maintaining neutral cervical position. Significant assistance and cueing required to position pt . Physical Therapy Plan Frequency and Duration Frequency of Treatment 2x/Week Duration of Treatment 2 months Plan of Care Start Date 05/26/18 Plan of Care End Date 07/27/18 Next Visit Focus/Plan Next Note Type Treatment Note Next Visit Plan prop up to plank to cont to work on cervical stability
--- NOTE | 2018-08-04 11:37 | PT.OTN ---
Current Diagnoses Cervicalgia (08/04/18) Physical Therapy Treatment Note PT-OP-A Visit Information Start: 05/26/18 08:08 Freq: Status: Active Protocol: Document 08/04/18 11:16 [facility] (Rec: 08/04/18 11:37 [facility] [id number]) Out-Patient Physical Therapy Visit Information Visit Information Visit Type Treatment Note Visit Note 15 total Visit Start Time 10:25 Visit Stop Time 11:20 Total Visit Minutes 55 Visit Number 11/30 PT-OP-B Current Condition Start: 05/26/18 08:08 Freq: Status: Active Protocol: Document 05/26/18 08:59 [facility] (Rec: 05/26/18 09:50 [facility] [id number]) Current Condition History of Current Condition Onset Date 30 years ago Current Complaints neck pain History of Current Condition Pt reports straining her neck when working on their their house 3 years ago. Scapular pain 1 year ago she started therapy when pain got really bad on L side. She did PT and ent well and cont exercises, but noted pain is getting worse. Pt tried chiropractic treatment when she got back from a vacation at the end of December. She reports inc ROM but reports skull aches on R side that are most often at night that go down into R neck. She walks a lot and has no difficulty. 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 Reports being able just watch TV or conversing with friends is difficult d/t having to turn her head. Pt reports she rides her bike and wants to be able to look quickly Prior Treatments and Tests Xray done Future Testing and Treatments Planned PT & chiro Treatment Goals Patient/Caregiver Goals return to gardening, being able to talk to friends and watch TV with less issue, less difficulty with biking, be able to look up with binoculars to bird watching Personal Factors Other Personal Factors That May Effect Thumb pain B and trigger Therapy/Recovery finger sx PT-OP-C Subjective Start: 05/26/18 08:08 Freq: Status: Active Protocol: Document 08/04/18 11:16 [facility] (Rec: 08/04/18 11:37 [facility] [id number]) OP-PT Subjective Patient Comments Patient Comments Pt feels like she is doing better today and the axial elongation exercise seems to be helping. Patient Reported Progress Improving Patient Questionnaires Neck Disability Index NDI Score 11 Neck Disability Index Impairment 20 to 39% Impaired (Score 10- 19) PT-OP-F Manual Assessment Start: 05/26/18 08:08 Freq: Status: Active Protocol: Document 05/26/18 08:59 [facility] (Rec: 05/26/18 09:50 [facility] [id number]) Manual Assessments Soft Tissue Assessment Soft Tissue Mobility Assessment overall cervical tightness significant on R>L Joint Mobility Assessment Joint Mobility Assessment elevated 1st rib R PT-OP-J Posture/Palpation/Skin Start: 05/26/18 08:08 Freq: Status: Active Protocol: Document 05/26/18 08:59 [facility] (Rec: 05/26/18 09:50 [facility] [id number]) Posture Evaluation Padmini Postural Classification System Padmini Postural Classifications Anterior/Posterior Elbow Flexion Test 2 PT-OP-K Range of Motion Start: 05/26/18 08:08 Freq: Status: Active Protocol: Document 08/04/18 11:16 [facility] (Rec: 08/04/18 11:37 [facility] [id number]) Cervical Spine Range of Motion Cervical Spine Active Degrees Testing Position Sitting Flexion 54 Extension 66 Rotation Left 66 Rotation Right 60 Lateral Flexion Left 40 Lateral Flexion Right 40 PT-OP-L Special Tests Start: 05/26/18 08:08 Freq: Status: Active Protocol: Document 05/26/18 08:59 [facility] (Rec: 05/26/18 09:50 [facility] [id number]) Special Tests Cervical Spine Special Tests Vertebral Artery Test Results negative Spurling's Test Test Results post for pain Alar Ligament Test Results neg Neural Special Tests- Upper Body Median Nerve Tension Test Results neg L; R positive Radial Nerve Tension Test Results neg B Ulnar Nerve Tension Test Results neg Upper Limb Tension Test Comments passive abd: R ~110; L~150 PT-OP-M Strength Start: 05/26/18 08:08 Freq: Status: Active Protocol: Document 07/06/18 09:48 [facility] (Rec: 07/06/18 10:37 [facility] [id number]) Shoulder Strength Shoulder Manual Muscle Testing Right Flexion 5 Normal Extension 5 Normal Abduction (C5) 5 Normal Adduction 5 Normal External Rotation 4+ Good+ Horizontal Abduction 4+ Good+ Horizontal Adduction 5 Normal Left Flexion 5 Normal Extension 5 Normal Abduction (C5) 5 Normal Adduction 5 Normal External Rotation 4+ Good+ Internal Rotation 5 Normal Horizontal Abduction 5 Normal Horizontal Adduction 5 Normal PT-OP-Q Treatments Start: 05/26/18 08:08 Freq: Status: Active Protocol: Document 08/04/18 11:16 [facility] (Rec: 08/04/18 11:37 [facility] [id number]) Therapeutic Exercises Other Exercises quadruped Other Exercise Name quad scapular positioning Comments w/focus on neutral head position prone prop Other Exercise Name scapular depression & neutral neck stability Comments stopped d/t unable to stabilize with significant cueing Manual Therapy Treatment Soft Tissue Mobilization SCM Body Location SCM Mobilization Type Rolling cranial fascia Body Location cranial fascia Mobilization Type Myofascial Release scalenes Body Location scalenes R Mobilization Type Rolling SOR Body Location SOR Mobilization Type Sustained Pressure Intensity/Depth Moderate UT/LS Body Location UT/LS R Mobilization Type Rolling PT-OP-R Modalities Start: 05/26/18 08:08 Freq: Status: Active Protocol: Document 08/04/18 11:16 [facility] (Rec: 08/04/18 11:37 [facility] [id number]) Spinal Traction Traction Treatment Cervical Method Mechanical Patient Position Hooklying Force Applied (Pounds) 12 Duration of Treatment (Minutes) 10 PT-OP-T Assessment and Plan Start: 05/26/18 08:08 Freq: Status: Active Protocol: Document 08/04/18 11:16 [facility] (Rec: 08/04/18 11:37 [facility] [id number]) Physical Therapy Assessment Impairments Impairments Activity Tolerance Functional Activities Pain Posture ROM Soft Tissue Mobility Strength Goals ROM Short Term Goal (STG) Indep With HEP STG Duration 06/26/18- achieved progressing Dragline Mechanic Goal (LTG) Pt will have WFL ROM to allow her to do her typical daily activities. LTG Duration 09/24/18- improving NDI Impairment neck disability index Short Term Goal (STG) 18/50 STG Duration achieved [facility]iary Goal (LTG) 8/50 to show improvement in functional ability LTG Duration 09/24/18-improved activities Impairment activities Short Term Goal (STG) Pt will be able to demonstrate good sleeping position and be able to sleep without waking d/t pain STG Duration achieved Penitentiary Goal (LTG) Pt will be able to do gardening, time with friends, read, drive and watch TV w/ minimal complaints of pain. LTG Duration 09/24/18-improving Assessment Summary Assessment Pt is improving with ROM and functional activity and is gradually building cervical stability that is improving ability to sit up and doing activties like puzzles. Physical Therapy Plan Frequency and Duration Frequency of Treatment 1x/Week Duration of Treatment 2 months Plan of Care Start Date 08/04/18 Plan of Care End Date 10/02/18 Therapeutic Interventions Therapeutic Interventions Home Exercise Program Joint Mobilizations Manual Therapy Neuromuscular Re-education Patient/Caregiver Education Self-Care/Home Management Soft Tissue Mobilization Taping Therapeutic Activities Therapeutic Exercises Modalities Cold Pack/Ice Massage Electric Stimulation Hot Packs Traction- Mechanical Ultrasound Next Visit Focus/Plan Next Note Type Treatment Note Next Visit Plan Cont to advance cervical stability
--- NOTE | 2018-08-04 11:37 | PT.OPPOC ---
Current Diagnoses Cervicalgia (08/04/18) Provider Visit Care Team Role Provider Type Justin Escamilla MD Attending Provider Physician Family Provider Primary Care Provider Specialty: Internal Medicine Address: [address] [place] [address], [id number] Email: [email or web address] Plan Of Care PT-OP-T Assessment and Plan Start: 05/26/18 08:08 Freq: Status: Active Protocol: Document 08/04/18 11:16 [facility] (Rec: 08/04/18 11:37 [facility] [id number]) Physical Therapy Assessment Impairments Impairments Activity Tolerance Functional Activities Pain Posture ROM Soft Tissue Mobility Strength Goals ROM Short Term Goal (STG) Indep With HEP STG Duration 06/26/18- achieved progressing Fish Grader Goal (LTG) Pt will have WFL ROM to allow her to do her typical daily activities. LTG Duration 09/24/18- improving NDI Impairment neck disability index Short Term Goal (STG) 18/50 STG Duration achieved Group Home Goal (LTG) 8/50 to show improvement in functional ability LTG Duration 09/24/18-improved activities Impairment activities Short Term Goal (STG) Pt will be able to demonstrate good sleeping position and be able to sleep without waking d/t pain STG Duration achieved Fish Grader Goal (LTG) Pt will be able to do gardening, time with friends, read, drive and watch TV w/ minimal complaints of pain. LTG Duration 09/24/18-improving Assessment Summary Assessment Pt is improving with ROM and functional activity and is gradually building cervical stability that is improving ability to sit up and doing activties like puzzles. Physical Therapy Plan Frequency and Duration Frequency of Treatment 1x/Week Duration of Treatment 2 months Plan of Care Start Date 08/04/18 Plan of Care End Date 10/02/18 Therapeutic Interventions Therapeutic Interventions Home Exercise Program Joint Mobilizations Manual Therapy Neuromuscular Re-education Patient/Caregiver Education Self-Care/Home Management Soft Tissue Mobilization Taping Therapeutic Activities Therapeutic Exercises Modalities Cold Pack/Ice Massage Electric Stimulation Hot Packs Traction- Mechanical Ultrasound Next Visit Focus/Plan Next Note Type Treatment Note Next Visit Plan Cont to advance cervical stability Plan of Care Dates Plan of Care Start Date 08/04/18 Plan of Care End Date 10/02/18 Please Sign and Return: I have reviewed this Plan of Care and certify that the skilled therapy services above are required to meet the patient?s needs. Physician Signature Date Printed Name and Credentials Clinical Instructor Signature Printed Name and Credentials
--- NOTE | 2018-08-14 14:43 | PT.OTN ---
Current Diagnoses Cervicalgia (08/14/18) Physical Therapy Treatment Note PT-OP-A Visit Information Start: 05/26/18 08:08 Freq: Status: Active Protocol: Document 08/14/18 11:55 [facility] (Rec: 08/14/18 14:42 [facility] [id number]) Out-Patient Physical Therapy Visit Information Visit Information Visit Type Treatment Note Visit Note 16 total Visit Start Time 13:45 Visit Stop Time 14:40 Total Visit Minutes 55 Visit Number 12/30 PT-OP-B Current Condition Start: 05/26/18 08:08 Freq: Status: Active Protocol: Document 05/26/18 08:59 [facility] (Rec: 05/26/18 09:50 [facility] [id number]) Current Condition History of Current Condition Onset Date 30 years ago Current Complaints neck pain History of Current Condition Pt reports straining her neck when working on their their house 3 years ago. Scapular pain 1 year ago she started therapy when pain got really bad on L side. She did PT and ent well and cont exercises, but noted pain is getting worse. Pt tried chiropractic treatment when she got back from a vacation at the end of December. She reports inc ROM but reports skull aches on R side that are most often at night that go down into R neck. She walks a lot and has no difficulty. 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 Reports being able just watch TV or conversing with friends is difficult d/t having to turn her head. Pt reports she rides her bike and wants to be able to look quickly Prior Treatments and Tests Xray done Future Testing and Treatments Planned PT & chiro Treatment Goals Patient/Caregiver Goals return to gardening, being able to talk to friends and watch TV with less issue, less difficulty with biking, be able to look up with binoculars to bird watching Personal Factors Other Personal Factors That May Effect Thumb pain B and trigger Therapy/Recovery finger sx PT-OP-C Subjective Start: 05/26/18 08:08 Freq: Status: Active Protocol: Document 08/14/18 11:55 [facility] (Rec: 08/14/18 14:42 [facility] [id number]) OP-PT Subjective Patient Comments Patient Comments Pt reports she has questions about posture & on how much to push cervical rotation exercise. PT-OP-F Manual Assessment Start: 05/26/18 08:08 Freq: Status: Active Protocol: Document 05/26/18 08:59 [facility] (Rec: 05/26/18 09:50 [facility] [id number]) Manual Assessments Soft Tissue Assessment Soft Tissue Mobility Assessment overall cervical tightness significant on R>L Joint Mobility Assessment Joint Mobility Assessment elevated 1st rib R PT-OP-J Posture/Palpation/Skin Start: 05/26/18 08:08 Freq: Status: Active Protocol: Document 05/26/18 08:59 [facility] (Rec: 05/26/18 09:50 [facility] [id number]) Posture Evaluation Padmini Postural Classification System Padmini Postural Classifications Anterior/Posterior Elbow Flexion Test 2 PT-OP-K Range of Motion Start: 05/26/18 08:08 Freq: Status: Active Protocol: Document 08/04/18 11:16 [facility] (Rec: 08/04/18 11:37 [facility] [id number]) Cervical Spine Range of Motion Cervical Spine Active Degrees Testing Position Sitting Flexion 54 Extension 66 Rotation Left 66 Rotation Right 60 Lateral Flexion Left 40 Lateral Flexion Right 40 PT-OP-L Special Tests Start: 05/26/18 08:08 Freq: Status: Active Protocol: Document 05/26/18 08:59 [facility] (Rec: 05/26/18 09:50 [facility] [id number]) Special Tests Cervical Spine Special Tests Vertebral Artery Test Results negative Spurling's Test Test Results post for pain Alar Ligament Test Results neg Neural Special Tests- Upper Body Median Nerve Tension Test Results neg L; R positive Radial Nerve Tension Test Results neg B Ulnar Nerve Tension Test Results neg Upper Limb Tension Test Comments passive abd: R ~110; L~150 PT-OP-M Strength Start: 05/26/18 08:08 Freq: Status: Active Protocol: Document 07/06/18 09:48 [facility] (Rec: 07/06/18 10:37 [facility] [id number]) Shoulder Strength Shoulder Manual Muscle Testing Right Flexion 5 Normal Extension 5 Normal Abduction (C5) 5 Normal Adduction 5 Normal External Rotation 4+ Good+ Horizontal Abduction 4+ Good+ Horizontal Adduction 5 Normal Left Flexion 5 Normal Extension 5 Normal Abduction (C5) 5 Normal Adduction 5 Normal External Rotation 4+ Good+ Internal Rotation 5 Normal Horizontal Abduction 5 Normal Horizontal Adduction 5 Normal PT-OP-Q Treatments Start: 05/26/18 08:08 Freq: Status: Active Protocol: Document 08/14/18 11:55 [facility] (Rec: 08/14/18 14:42 [facility] [id number]) Therapeutic Exercises Supine Exercises rotations Supine Exercise Name R rotation stretch Comments no longer doing standing d/t pain Other Exercises quadruped Other Exercise Name quad scapular positioning Comments w/focus on neutral head position prone prop Other Exercise Name scapular depression & neutral neck stability Comments worked into plank position cueing for core Therapeutic Activity Therapeutic Activity bending over Name edu on dishes positioning and cutting Comments avoiding scapular elevation standing Name posture in standing for neck & scapula Manual Therapy Treatment Soft Tissue Mobilization SCM Body Location SCM Mobilization Type Rolling SOR Body Location SOR Mobilization Type Sustained Pressure Intensity/Depth Moderate Joint Mobilizations C2 Joint C2 Direction transverse L FM Manual Traction Cervical Body Position Supine Reps/Duration 2 min PT-OP-R Modalities Start: 05/26/18 08:08 Freq: Status: Active Protocol: Document 08/14/18 11:55 [facility] (Rec: 08/14/18 14:42 [facility] [id number]) Hot Pack/Cold Pack Treatment Hot Pack Location cervical Patient Position Hooklying Treatment Duration (minutes) 15 Spinal Traction Traction Treatment Cervical Method Mechanical Patient Position Hooklying Force Applied (Pounds) 14 Duration of Treatment (Minutes) 10 PT-OP-T Assessment and Plan Start: 05/26/18 08:08 Freq: Status: Active Protocol: Document 08/14/18 11:55 [facility] (Rec: 08/14/18 14:42 [facility] [id number]) Physical Therapy Assessment Goals ROM Short Term Goal (STG) Indep With HEP STG Duration 06/26/18- achieved progressing Key Account Director Goal (LTG) Pt will have WFL ROM to allow her to do her typical daily activities. LTG Duration 09/24/18- improving NDI Impairment neck disability index Short Term Goal (STG) 18/50 STG Duration achieved Mcc Goal (LTG) 8/50 to show improvement in functional ability LTG Duration 09/24/18-improved activities Impairment activities Short Term Goal (STG) Pt will be able to demonstrate good sleeping position and be able to sleep without waking d/t pain STG Duration achieved Mcc Goal (LTG) Pt will be able to do gardening, time with friends, read, drive and watch TV w/ minimal complaints of pain. LTG Duration 09/24/18-improving Assessment Summary Assessment Pt is improving with ability to stabilize in prone and standing postiion. SHe requires cueing for scapular positioning. Physical Therapy Plan Frequency and Duration Frequency of Treatment 1x/Week Duration of Treatment 2 months Plan of Care Start Date 08/04/18 Plan of Care End Date 10/02/18 Next Visit Focus/Plan Next Note Type Treatment Note Next Visit Plan Advance cervical stability & rotation
--- NOTE | 2018-09-21 13:52 | PT.OTN ---
Current Diagnoses Cervicalgia (09/21/18) Physical Therapy Treatment Note PT-OP-A Visit Information Start: 05/26/18 08:08 Freq: Status: Active Protocol: Document 09/21/18 12:58 [facility] (Rec: 09/21/18 13:52 [facility] [id number]) Out-Patient Physical Therapy Visit Information Visit Information Visit Type Discharge Summary Visit Start Time 13:00 Visit Stop Time 13:45 Total Visit Minutes 45 Visit Number 8 PT-OP-B Current Condition Start: 05/26/18 08:08 Freq: Status: Active Protocol: Document 05/26/18 08:59 [facility] (Rec: 05/26/18 09:50 [facility] [id number]) Current Condition History of Current Condition Onset Date 30 years ago Current Complaints neck pain History of Current Condition Pt reports straining her neck when working on their their house 3 years ago. Scapular pain 1 year ago she started therapy when pain got really bad on L side. She did PT and ent well and cont exercises, but noted pain is getting worse. Pt tried chiropractic treatment when she got back from a vacation at the end of December. She reports inc ROM but reports skull aches on R side that are most often at night that go down into R neck. She walks a lot and has no difficulty. 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 Reports being able just watch TV or conversing with friends is difficult d/t having to turn her head. Pt reports she rides her bike and wants to be able to look quickly Prior Treatments and Tests Xray done Future Testing and Treatments Planned PT & chiro Treatment Goals Patient/Caregiver Goals return to gardening, being able to talk to friends and watch TV with less issue, less difficulty with biking, be able to look up with binoculars to bird watching Personal Factors Other Personal Factors That May Effect Thumb pain B and trigger Therapy/Recovery finger sx PT-OP-C Subjective Start: 05/26/18 08:08 Freq: Status: Active Protocol: Document 09/21/18 12:58 [facility] (Rec: 09/21/18 13:52 [facility] [id number]) OP-PT Subjective Patient Comments Patient Comments Pt reports she feels like her neck stability is improving overall PT-OP-F Manual Assessment Start: 05/26/18 08:08 Freq: Status: Active Protocol: Document 05/26/18 08:59 [facility] (Rec: 05/26/18 09:50 [facility] [id number]) Manual Assessments Soft Tissue Assessment Soft Tissue Mobility Assessment overall cervical tightness significant on R>L Joint Mobility Assessment Joint Mobility Assessment elevated 1st rib R PT-OP-J Posture/Palpation/Skin Start: 05/26/18 08:08 Freq: Status: Active Protocol: Document 05/26/18 08:59 [facility] (Rec: 05/26/18 09:50 [facility] [id number]) Posture Evaluation Padmini Postural Classification System Padmini Postural Classifications Anterior/Posterior Elbow Flexion Test 2 PT-OP-K Range of Motion Start: 05/26/18 08:08 Freq: Status: Active Protocol: Document 09/21/18 12:58 [facility] (Rec: 09/21/18 13:52 [facility] [id number]) Cervical Spine Range of Motion Cervical Spine Active Degrees Flexion 58 Extension 67 Rotation Left 62 Rotation Right 48 Lateral Flexion Left 45 Lateral Flexion Right 45 PT-OP-L Special Tests Start: 05/26/18 08:08 Freq: Status: Active Protocol: Document 05/26/18 08:59 [facility] (Rec: 05/26/18 09:50 [facility] [id number]) Special Tests Cervical Spine Special Tests Vertebral Artery Test Results negative Spurling's Test Test Results post for pain Alar Ligament Test Results neg Neural Special Tests- Upper Body Median Nerve Tension Test Results neg L; R positive Radial Nerve Tension Test Results neg B Ulnar Nerve Tension Test Results neg Upper Limb Tension Test Comments passive abd: R ~110; L~150 PT-OP-M Strength Start: 05/26/18 08:08 Freq: Status: Active Protocol: Document 07/06/18 09:48 [facility] (Rec: 07/06/18 10:37 [facility] [id number]) Shoulder Strength Shoulder Manual Muscle Testing Right Flexion 5 Normal Extension 5 Normal Abduction (C5) 5 Normal Adduction 5 Normal External Rotation 4+ Good+ Horizontal Abduction 4+ Good+ Horizontal Adduction 5 Normal Left Flexion 5 Normal Extension 5 Normal Abduction (C5) 5 Normal Adduction 5 Normal External Rotation 4+ Good+ Internal Rotation 5 Normal Horizontal Abduction 5 Normal Horizontal Adduction 5 Normal PT-OP-Q Treatments Start: 05/26/18 08:08 Freq: Status: Active Protocol: Document 09/21/18 12:58 [facility] (Rec: 09/21/18 13:52 [facility] [id number]) Therapeutic Exercises Supine Exercises axial elongation Supine Exercise Name axial elongation Equipment Used mult reps to try to get good position Reps/Minutes w/gradual progression of less assistance Comments chin tuck with head support Standing Exercises wall posture Standing Exercise Name w/90/90 ER Other Exercises plank Other Exercise Name on hands & feet Comments w/focus on neutral head position quadruped Other Exercise Name quad scapular positioning Comments w/focus on neutral head position Manual Therapy Treatment Soft Tissue Mobilization SCM Body Location SCM Mobilization Type Rolling scalenes Body Location scalenes R Mobilization Type Rolling SOR Body Location SOR Mobilization Type Sustained Pressure Intensity/Depth Moderate cervical paraspinals Mobilization Type Rolling Intensity/Depth Moderate Comments FM with chin tuck Self-Care/Home Management Treatment Education Patient Education Home Exercise Program Posture Other Education body mechanics w/bird watching PT-OP-R Modalities Start: 05/26/18 08:08 Freq: Status: Active Protocol: Document 08/14/18 11:55 [facility] (Rec: 08/14/18 14:42 [facility] [id number]) Hot Pack/Cold Pack Treatment Hot Pack Location cervical Patient Position Hooklying Treatment Duration (minutes) 15 Spinal Traction Traction Treatment Cervical Method Mechanical Patient Position Hooklying Force Applied (Pounds) 14 Duration of Treatment (Minutes) 10 PT-OP-T Assessment and Plan Start: 05/26/18 08:08 Freq: Status: Active Protocol: Document 09/21/18 12:58 [facility] (Rec: 09/21/18 13:52 [facility] [id number]) Physical Therapy Assessment Goals ROM Short Term Goal (STG) Indep With HEP STG Duration 06/26/18- achieved progressing Shelter Goal (LTG) Pt will have WFL ROM to allow her to do her typical daily activities. LTG Duration 09/24/18- improving NDI Impairment neck disability index Short Term Goal (STG) 1850 STG Duration achieved Shelter Goal (LTG) to show improvement in functional ability LTG Duration 09/24/18-improved activities Impairment activities Short Term Goal (STG) Pt will be able to demonstrate good sleeping position and be able to sleep without waking d/t pain STG Duration achieved Shelter Goal (LTG) Pt will be able to do gardening, time with friends, read, drive and watch TV w/ minimal complaints of pain. LTG Duration 09/24/18-improving Assessment Summary Assessment Pt has improved with ability to particiapte in activities, but does require cueing for good form and position of neck and UE movement for activities. She is working on posture and positioning, but does struggle to maintain neutral. she is improving with neck stability, but is overall still limited. Physical Therapy Plan Discharge Physical Therapy Discharge Reasons Plateau in Progress Discharge Comments Pt to cont w/HEP at home.
== END 2018-09-21 15:51 ==
LOC: PHYS 13:00
PROVIDERS: Family Provider Internal Medicine; PCP Internal Medicine; Visit Provider Internal Medicine
DX: M54.2 Cervicalgia (principal)
CPT/HCPCS: 97010; 97012; 97110; 97112; 97140; 97162; 97530; 97535

== ENCOUNTER → 2018-10-27 07:28 | Outpatient (CLI) | payer OTHER, SELFPAY ==
[2018-10-29 12:00] LABS: Ionized Calcium 5.3 mg/dL (4.8-5.6)
[2018-10-29 14:13] LABS: Parathyroid Hormone Int 31 pg/mL (14-64)
== END ==
PROVIDERS: PCP Internal Medicine; Visit Provider Internal Medicine
DX: E83.52 Hypercalcemia (principal)
CPT/HCPCS: 36415; 82310; 82330; 83970

== ENCOUNTER 2019-02-01 12:12 | Day surgery (SDC) | payer OTHER, SELFPAY ==
[2019-02-01 13:47] VITALS: BMI 21.4
[2019-02-01 13:52] VITALS: BP 118/75; PULSE 79; RESP 12; TEMP 37; O2SAT 99
[2019-02-01] MEDS: SODIUM CHLORIDE 0.9% 1,000 ML 200 ML IV (14:00)
--- NOTE | 2019-02-01 14:11 | PM.HP.1 ---
History of Present Illness Date Patient Seen: 02/01/19 Time Patient Seen: 14:11 Chief complaint: [id number] Narrative: Patient is here for a screening colonoscopy as had a prior colonoscopy with no polyps discovered she is asymptomatic with no bleeding no hematochezia no melena no pain Patient History Medical History Hypercalcemia (Chronic) Idiopathic peripheral neuropathy (Chronic 02/21/11) Osteoporosis (Chronic 04/08/16) Chicken pox (Resolved ~1948) Mumps (Resolved 1948) Plantar warts (Resolved ~1953) Rubella (Resolved 1948) Trigger finger (Resolved) Osteopenia (Inactive 02/21/11) Surgical History Anesthesia (Resolved) History of hand surgery (Resolved 2008) History of hand surgery (Resolved 2010) History of hand surgery (Resolved 2008) Status post eye surgery (Resolved 1998) Family History Father Hypertension Prostate cancer Mother Cancer Sister Age: 80 Cancer Breast cancer Social History marital status: number of children: 2 household members: spouse lives independently: Yes caregiver/support person: No housing: house pets and animals: No education level: college occupational 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: None travel history: recent ([place]) leisure activities: exercise (Walk, bike, and row) Smoking Status: Never smoker Tobacco: How many years used: 0 quit status: quit date established (Never started) second hand exposure: No alcohol intake: current (A glass of wine or beer a day) substance use type: does not use Family & Social History Social History: household members spouse lives independently Yes caregiver/support person No Tobacco & Substance use: Smoking Status Never smoker alcohol intake current Meds Home Medications Medication Instructions Recorded Confirmed Type alendronate 70 mg tablet 70 mg PO QWEEK #12 tab 08/03/18 02/01/19 Rx gabapentin [Neurontin] 600 - 1,200 mg PO TID 02/01/19 02/01/19 History Allergies Allergy/AdvReac Type Severity Reaction Status Date / Time No Known Drug Allergies Allergy Verified 02/01/19 13:45 Review of Systems Review of Systems All systems reviewed & are unremarkable except as noted in HPI and below Exam Vital Signs (past 8 hours): - 02/01/19 13:52 Temperature 98.6 F Pulse Rate 79 Respiratory Rate 12 Blood Pressure 118/75 Pulse Oximetry 99 Oxygen Delivery Method Room Air Narrative Exam Narrative: Patient is alert and oriented Lungs are clear with no rales or wheezes Heart regular rhythm no murmur Abdomen soft no organomegaly rectal to be done at time of colonoscopy Assessment & Plan Assessment & Plan narrative: Patient here for her 2nd colonoscopy no history of polyps she understands the procedure and has no questions
[2019-02-01] MEDS: fentaNYL 250 MCG/5 ML INJ IV (14:31)
[2019-02-01] MEDS: MIDAZOLAM 5 MG/5 ML VIAL IV (14:31)
--- NOTE | 2019-02-01 14:43 | PM.OP.ENDO ---
Operative Date/Time/Diagnoses Date of procedure: 02/01/19 Time of procedure: 14:43 Pre-op diagnosis: Screening colonoscopy Post-op diagnosis: same Procedure & Clinicians Study performed: Total colonoscopy to the cecum Same procedure as scheduled: Yes Surgeon: Bud Vasquez Procedure Notes SCOAP/Timeout: Was done Procedure in detail: Patient was properly identified during surgical pause given conscious sedation using 4 mg of Versed and 150 micro g of fentanyl. The procedure was very well tolerated. The flexible fiberoptic colonoscope was inserted transanally to the cecum. The patient has no diverticulosis no polyps no tumors no ulcerations Scope withdrawal time: 5 Sedation minutes: 18 Specimen(s): none sent Complications: none Impression: Patient is 73 had a normal colonoscopy unlikely that she needs another colonoscopy unless she becomes symptomatic.
[2019-02-01 14:45] VITALS: BP 106/72; PULSE 78; RESP 15; TEMP 36.2; O2SAT 94
[2019-02-01 14:49] VITALS: BP 105/71; PULSE 76; RESP 11; O2SAT 94
[2019-02-01 14:56] VITALS: BP 99/67; PULSE 81; RESP 13; O2SAT 94
[2019-02-01 15:24] VITALS: BP 110/74; PULSE 64; RESP 121; TEMP 35.9; O2SAT 95
== END 2019-02-01 15:31 | disposition home or self-care (01) ==
PROVIDERS: PCP Internal Medicine; Visit Provider Surgery
PROC: 0DJD8ZZ Inspection of Lower Intestinal Tract, Via Natural or Artificial Opening Endoscopic (ICD-10-PCS; CPT 45378; principal; 2019-02-01 13:45)
DX: Z12.11 Encounter for screening for malignant neoplasm of colon (principal); G60.9 Hereditary and idiopathic neuropathy, unspecified
CPT/HCPCS: G0121; 99152; J2250; J3010

== ENCOUNTER → 2019-08-05 11:05 | Outpatient (CLI) | payer MEDICARE, SELFPAY ==
[2019-08-05 12:32] LABS: Alanine Aminotransferase 19 IU/L (<35); Albumin 4.6 g/dL (3.5-5.0); Albumin Globulin Ratio 1.4 (1.0-2.8); Alkaline Phosphatase 85 U/L (38-126); Aspartate Aminotransferase 32 IU/L (14-36); Bilirubin Total 0.5 mg/dL (0.2-1.3); Blood Urea Nitrogen 16 mg/dL (7-17); Calcium 10.5 mg/dL (8.4-10.2); Carbon Dioxide 30 mmol/L (22-32); Chloride 102 mmol/L (98-107); Estimated Glomerular Filt Rate > 60.0 mL/min (>60); Globulin 3.3 g/dL (1.7-4.1); Glucose 84 mg/dL (80-110); HEMOLYSIS < 15 (0-50); Potassium 5.3 mmol/L (3.4-5.1); Sodium 141 mmol/L (137-145); Total Protein 7.9 g/dL (6.3-8.2)
== END ==
PROVIDERS: PCP Internal Medicine; Referring Provider Internal Medicine; Visit Provider Internal Medicine
DX: D35.1 Benign neoplasm of parathyroid gland (principal); E83.52 Hypercalcemia; M81.0 Age-related osteoporosis without current pathological fracture; Z79.899 Other long term (current) drug therapy
CPT/HCPCS: 36415; 80053

== ENCOUNTER → 2020-02-15 15:35 | Outpatient (CLI) | payer MEDICARE, SELFPAY ==
--- NOTE | 2020-02-15 15:37 | DI.MG.S_ITS ---
BILATERAL DIGITAL SCREENING MAMMOGRAM 3D/2D WITH CAD: 02/15/2020 CLINICAL: Routine screening. Family history of breast cancer. Comparison is made to exams dated: 07/23/2017 mammogram, 01/31/2016 mammogram, and 07/25/2014 mammogram - [facility]. The tissue of both breasts is heterogeneously dense. This may lower the sensitivity of mammography. Current study was also evaluated with a Computer Aided Detection (CAD) system. No significant masses, calcifications, or other findings are seen in either breast. There has been no significant interval change. IMPRESSION: NEGATIVE There is no mammographic evidence of malignancy. A 1 year screening mammogram is recommended. This exam was interpreted at Station ID: [id number]. NOTE: For mammograms, a report in lay terms will be sent to the patient. Approximately 15% of breast malignancies will not be visualized mammographically. In the management of a palpable breast mass, a negative mammogram must not discourage biopsy of a clinically suspicious lesion. Electronically Signed By: Hernan sampson/hilary:02/15/2020 16:14:01 letter sent: Normal Exam ACR BI-RADS Category 1: Negative 3341F
== END ==
PROVIDERS: PCP Internal Medicine; Referring Provider Internal Medicine; Visit Provider Internal Medicine
DX: Z12.31 Encounter for screening mammogram for malignant neoplasm of breast (principal); Z80.3 Family history of malignant neoplasm of breast
CPT/HCPCS: 77063; 77067

== ENCOUNTER 2020-04-15 19:25 | Emergency (ER) | payer MEDICARE, SELFPAY ==
[2020-04-15 19:30] VITALS: BP 161/76; PULSE 84; RESP 20; TEMP 36.7; O2SAT 96; BMI 21.4
--- NOTE | 2020-04-15 19:52 | PC.NURSE ---
Patient states was making dinner with home canned tomato sauce. Noticed that can was not properly sealed and states that tasted vinegary. Her and her spouse both ate several bites. States worried about botulism. Denies nausea or vomiting.
--- NOTE | 2020-04-15 19:58 | ED.GENADULT ---
HPI - General Adult General Chief complaint: Toxicology Problem Stated complaint: Possible food poisoning Time Seen by Provider: 04/15/20 19:33 Source: patient Mode of arrival: Ambulatory History of Present Illness HPI narrative: Patient here with concerns of food poisoning and possible botulism. Patient states she made some homemade tomato sauce earlier this month and placed him in jars. She thought they were sealed. She opened the 1st 1 and had suspicion a may not have been properly seal. She opened a 2nd 1 and it was not still probably in smell funny. She did proceed to cook with the 1st jar in her and her took fiber 6 bites out of the meal and it tasted funny. They immediately threw away. Neither neither neither 1 of them had any nausea vomiting diarrhea fever or abdominal pain. She was concerned about food poisoning and came here. did not check in. Related Data Previous Rx's Medication Instructions Recorded alendronate 70 mg tablet 70 mg PO QWEEK #12 tab 07/02/19 gabapentin 600 mg tablet 600 - 1,200 mg PO TID #180 tab 08/05/19 Allergies Allergy/AdvReac Type Severity Reaction Status Date / Time No Known Drug Allergies Allergy Verified 02/17/20 14:29 Review of Systems Review of Systems Narrative: GENERAL: Denies chills, fatigue, malaise, fever, sweats. HEENT: Denies sinus pain, ear pain, sore throat, difficulty swallowing RESPIRATORY: Denies dyspnea, cough CARDIOVASCULAR: Denies chest pain, palpitations, edema, GASTROINTESTINAL: Denies nausea, vomiting, abdominal pain, diarrhea, constipation, melena. : Denies dysuria, frequency, hematuria MUSCULOSKELETAL: denies muscle or bony pain SKIN: Denies rash, skin lesions NEUROLOGIC: Denies weakness, headache, numbness, change in speech, confusion PSYCHIATRIC: No SI or HI or hallucinations ROS Unobtainable: All systems reviewed & are unremarkable except as noted in HPI and below Patient History Medical History Chicken pox (Resolved ~1948) Hypercalcemia (Chronic) Idiopathic peripheral neuropathy (Chronic 02/21/11) Mumps (Resolved 1948) Osteopenia (Inactive 02/21/11) Osteoporosis (Chronic 04/08/16) Plantar warts (Resolved ~1953) Rubella (Resolved 1948) Trigger finger (Resolved) Surgical History Anesthesia (Resolved) History of hand surgery (Resolved 2008) History of hand surgery (Resolved 2010) History of hand surgery (Resolved 2008) Status post eye surgery (Resolved 1998) Family History Father Hypertension Prostate cancer Mother Cancer Sister Age: 81 Cancer Breast cancer Social History marital status: number of children: 2 household members: spouse lives independently: Yes caregiver/support person: No housing: house pets and animals: No education level: college 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 Well-nourished, well-developed patient, in no distress, not toxic not dyspneic HEAD: Normocephalic. CARDIOVASCULAR: Regular rate and rhythm without murmurs, gallops, or rubs. RESPIRATORY: Clear to auscultation. Breath sounds equal bilaterally. No wheezes, rales, or rhonchi. GASTROINTESTINAL: Abdomen soft, non-tender, nondistended. BACK: Nontender No flank tenderness. NEURO: AOx4. SKIN: Warm and dry PSYCH: Not anxious, is cooperative Initial Vital Signs Initial Vital Signs: Vital Signs Temperature 98.1 F 04/15/20 19:30 Pulse Rate 84 04/15/20 19:30 Respiratory Rate 20 04/15/20 19:30 Blood Pressure 161/76 H 04/15/20 19:30 Pulse Oximetry 96 04/15/20 19:30 Course Reevaluation(s) Reevaluation #1: Reviewed with patient my conversation with [facility] Control and she feels at this time reassured and desires discharge home Time: 20:03 Consultations Consultation #1: I spoke with Alice, pharmacist with poison Control. Botulism poisoning is odorless. And has no taste. Appropriate for discharge home and observation and return if any bloody emesis or diarrhea or fever. Patient and family can call her as well tonight for any further questions. She will be working tonight. Patient is asymptomatic Time: 20:03 Vital Signs Vital signs: Vital Signs - 8 hr 04/15/20 19:30 Temperature 98.1 F Pulse Rate 84 Respiratory Rate 20 Blood Pressure 161/76 H Pulse Oximetry 96 Medical Decision Making Differential Diagnosis Differential Diagnosis: Food poisoning MDM Narrative Medical decision making narrative: At this time after discussion with poison Control. No laboratory studies indicated. No anti toxins indicated. No antibiotics or medications indicated. Appropriate for discharge home Discharge Plan Departure Patient Disposition: Home Clinical Impression: Food poisoning Discharge Date/Time: 04/15/20 20:07 Instructions: DI for Food Poisoning, Botulism Activity Restrictions/Additional Instructions: Return immediately if worse or if any questions or concerns. Return if any vomiting or diarrhea with blood. Or any fevers. Keep well hydrated. See family doctor next week for recheck. You may also call [facility] at [phone] and may ask for Alice if any further questions tonight. Prescriptions: No Action alendronate 70 mg tablet 70 mg PO QWEEK Qty: 12 RF: 3 gabapentin [Neurontin] 600 mg tablet 600 - 1,200 mg PO TID Qty: 180 RF: 3 Referrals: Justin Escamilla MD [Primary Care Provider] -
== END 2020-04-15 20:07 | disposition home or self-care (01) ==
PROVIDERS: Emergency Provider Emergency Medicine; PCP Internal Medicine; Referring Provider Internal Medicine
DX: A05.9 Bacterial foodborne intoxication, unspecified (principal)
CPT/HCPCS: 99281; 99282

== ENCOUNTER → 2020-08-22 07:22 | Outpatient (CLI) | payer MEDICARE, SELFPAY ==
[2020-08-22 09:00] LABS: Alanine Aminotransferase 18 IU/L (<35); Albumin 4.3 g/dL (3.5-5.0); Albumin Globulin Ratio 1.3 (1.0-2.8); Alkaline Phosphatase 79 U/L (38-126); Aspartate Aminotransferase 29 IU/L (14-36); BUN Creatinine Ratio 20.5 (6-22); Bilirubin Total 0.5 mg/dL (0.2-1.3); Blood Urea Nitrogen 16 mg/dL (7-17); Carbon Dioxide 32 mmol/L (22-32); Chloride 103 mmol/L (98-107); Cholesterol 222 mg/dL (140-199); Estimated Glomerular Filt Rate > 60.0 mL/min (>60); Globulin 3.2 g/dL (1.7-4.1); Glucose 90 mg/dL (80-110); HDL Cholesterol 82 mg/dL (40-60); HEMOLYSIS < 15 (0-50); LDL Cholesterol Calculated 126 mg/dL (<100); Potassium 4.1 mmol/L (3.4-5.1); Sodium 138 mmol/L (137-145); Total Protein 7.5 g/dL (6.3-8.2); Triglycerides 70 mg/dL (35-150)
== END ==
PROVIDERS: PCP Internal Medicine; Referring Provider Internal Medicine; Visit Provider Internal Medicine
DX: D35.1 Benign neoplasm of parathyroid gland (principal); Z13.220 Encounter for screening for lipoid disorders; G60.9 Hereditary and idiopathic neuropathy, unspecified
CPT/HCPCS: 36415; 80053; 80061

== ENCOUNTER → 2021-04-13 12:28 | Outpatient (CLI) | payer MEDICARE, SELFPAY | PROVIDERS: PCP Internal Medicine; Referring Provider Internal Medicine; Visit Provider Internal Medicine | DX: M85.88 Other specified disorders of bone density and structure, other site (principal); Z78.0 Asymptomatic menopausal state | CPT/HCPCS: 77080 ==

== ENCOUNTER → 2021-05-01 07:15 | Outpatient (CLI) | payer MEDICARE, SELFPAY ==
[2021-05-01 07:43] LABS: COVID19 -Nasal RAPID POSITIVE (Negative)
== END ==
PROVIDERS: PCP Internal Medicine; Referring Provider Physician Assistant; Visit Provider Physician Assistant
DX: Z20.822 Contact with and (suspected) exposure to COVID-19 (principal)
CPT/HCPCS: 87635

== ENCOUNTER → 2021-08-21 07:33 | Outpatient (CLI) | payer MEDICARE, SELFPAY ==
[2021-08-21 08:04] LABS: COVID19 -Nasal RAPID Negative (Negative)
== END ==
PROVIDERS: PCP Internal Medicine; Visit Provider Physician Assistant
DX: Z20.822 Contact with and (suspected) exposure to COVID-19 (principal)
CPT/HCPCS: 87635

== ENCOUNTER → 2021-12-18 09:44 | Outpatient (CLI) | payer MEDICARE, SELFPAY ==
[2021-12-18 10:53] LABS: Alanine Aminotransferase 19 IU/L (<35); Albumin 4.2 g/dL (3.5-5.0); Albumin Globulin Ratio 1.4 (1.0-2.8); Alkaline Phosphatase 74 U/L (38-126); Aspartate Aminotransferase 29 IU/L (14-36); BUN Creatinine Ratio 20.7 (6-22); Bilirubin Total 0.4 mg/dL (0.2-1.3); Blood Urea Nitrogen 18 mg/dL (7-17); Calcium 9.4 mg/dL (8.4-10.2); Carbon Dioxide 31 mmol/L (22-32); Chloride 105 mmol/L (98-107); Estimated Glomerular Filt Rate > 60 mL/min (>60); Glucose 103 mg/dL (80-110); HEMOLYSIS < 15 (0-50); Potassium 4.1 mmol/L (3.4-5.1); Sodium 140 mmol/L (137-145); Total Protein 7.2 g/dL (6.3-8.2)
== END ==
PROVIDERS: PCP Internal Medicine; Referring Provider Internal Medicine; Visit Provider Internal Medicine
DX: D35.1 Benign neoplasm of parathyroid gland (principal)
CPT/HCPCS: 36415; 80053

== ENCOUNTER → 2022-12-13 06:57 | Outpatient (CLI) | payer MEDICARE, SELFPAY ==
[2022-12-13 08:31] LABS: Alanine Aminotransferase 18 IU/L (<35); Albumin 3.7 g/dL (3.5-5.0); Albumin Globulin Ratio 1.4 (1.0-2.8); Alkaline Phosphatase 103 U/L (38-126); Aspartate Aminotransferase 25 IU/L (14-36); BUN Creatinine Ratio 26.7 (6-22); Bilirubin Total 0.2 mg/dL (0.2-1.3); Blood Urea Nitrogen 20 mg/dL (7-17); Calcium 8.9 mg/dL (8.4-10.2); Carbon Dioxide 31 mmol/L (22-32); Chloride 104 mmol/L (98-107); Cholesterol 207 mg/dL (140-199); Estimated Glomerular Filt Rate > 60 mL/min (>60); Globulin 2.7 g/dL (1.7-4.1); Glucose 82 mg/dL (80-110); HDL Cholesterol 91 mg/dL (40-60); HEMOLYSIS < 15 (0-50); LDL Cholesterol Calculated 105 mg/dL (<100); Potassium 4.1 mmol/L (3.4-5.1); Sodium 138 mmol/L (137-145); Total Protein 6.4 g/dL (6.3-8.2); Triglycerides 57 mg/dL (35-150)
[2022-12-14 10:08] LABS: Calcium 9.1 mg/dL (8.7-10.3); Parathyroid Hormone, Intact 34 pg/mL (15-65)
== END ==
PROVIDERS: PCP Internal Medicine; Referring Provider Internal Medicine; Visit Provider Internal Medicine
DX: E78.5 Hyperlipidemia, unspecified (principal); D35.1 Benign neoplasm of parathyroid gland; E83.52 Hypercalcemia; Z13.1 Encounter for screening for diabetes mellitus
CPT/HCPCS: 36415; 80053; 80061; 82310; 83970

== ENCOUNTER → 2023-06-13 11:23 | Outpatient (CLI) | payer MEDICARE, SELFPAY ==
--- NOTE | 2023-06-13 11:24 | DI.MG.S_ITS ---
BILATERAL DIGITAL SCREENING MAMMOGRAM 3D/2D WITH CAD: 06/13/2023 CLINICAL: Routine screening. Family history of breast cancer. Comparison is made to exams dated: 02/15/2020 mammogram, 07/23/2017 mammogram, and 01/31/2016 mammogram - . Both breasts are heterogeneously dense, which may obscure small masses (category c / 51-75% glandular tissue). Current study was also evaluated with a Computer Aided Detection (CAD) system. There is a benign calcification in the right breast. There is a mole marker on the left breast. No significant masses, calcifications, or other findings are seen in either breast. There has been no significant interval change. IMPRESSION: BENIGN There is no mammographic evidence of malignancy. A 1 year screening mammogram is recommended. Based on the Tyrer Cuzick model (a risk assessment model) the patient's lifetime risk is 8.9% and her 10 year risk is 0.0%. According to the ACR, ACS, and NCCN guidelines, an annual breast MRI exam along with mammogram is recommended if the patient's lifetime risk is 20% or greater. This exam was interpreted at Station ID: [id number]. NOTE: For mammograms, a report in lay terms will be sent to the patient. Approximately 15% of breast malignancies will not be visualized mammographically. In the management of a palpable breast mass, a negative mammogram must not discourage biopsy of a clinically suspicious lesion. Electronically Signed By: Erik ragland/hilary:06/13/2023 12:57:17 letter sent: Normal Exam ACR BI-RADS Category 2: Benign Finding(s) 3342F
== END ==
PROVIDERS: PCP Internal Medicine; Referring Provider Internal Medicine; Visit Provider Internal Medicine
DX: Z12.31 Encounter for screening mammogram for malignant neoplasm of breast (principal); Z80.3 Family history of malignant neoplasm of breast
CPT/HCPCS: 77063; 77067

== ENCOUNTER → 2023-07-11 15:18 | Outpatient (CLI) | payer OTHER, SELFPAY ==
[2023-07-11 18:16] LABS: COVID-19 CEPHEID 4-PLEX PCR POSITIVE (Negative); Influenza A - CEPHEID Flu A NEGATIVE (NEGATIVE); Influenza B - CEPHEID Flu B NEGATIVE (NEGATIVE); Respiratory Syncytial Virus Negative (Negative)
== END ==
PROVIDERS: PCP Internal Medicine; Visit Provider Physician Assistant Medical
DX: R50.9 Fever, unspecified (principal); R52 Pain, unspecified
CPT/HCPCS: 0241U

== ENCOUNTER → 2024-10-08 11:21 | Outpatient (CLI) | payer MEDICARE, OTHER, SELFPAY ==
[2024-10-08 13:22] LABS: Alanine Aminotransferase 39 IU/L (<35); Albumin 4.3 g/dL (3.5-5.0); Albumin Globulin Ratio 1.7 (1.0-2.8); Alkaline Phosphatase 96 U/L (38-126); Aspartate Aminotransferase 46 IU/L (14-36); BUN Creatinine Ratio 20.3 (6-22); Bilirubin Total 0.6 mg/dL (0.2-1.3); Blood Urea Nitrogen 16 mg/dL (7-17); Calcium 9.2 mg/dL (8.4-10.2); Carbon Dioxide 27 mmol/L (22-32); Chloride 103 mmol/L (98-107); Estimated Glomerular Filt Rate > 60 mL/min (>60); Globulin 2.6 g/dL (1.7-4.1); Glucose 82 mg/dL (80-110); HEMOLYSIS < 15 (0-50); Potassium 4.9 mmol/L (3.4-5.1); Sodium 137 mmol/L (137-145); Total Protein 6.9 g/dL (6.3-8.2)
[2024-10-12 03:36] LABS: Calcium 9.3 mg/dL (8.7-10.3); Parathyroid Hormone, Intact 60 pg/mL (15-65)
== END ==
PROVIDERS: PCP Internal Medicine; Referring Provider Internal Medicine; Visit Provider Internal Medicine
DX: D35.1 Benign neoplasm of parathyroid gland (principal); E83.52 Hypercalcemia; E78.5 Hyperlipidemia, unspecified
CPT/HCPCS: 36415; 80053; 82310; 83970

== ENCOUNTER → 2025-01-04 16:08 | Outpatient (CLI) | payer MEDICARE, OTHER, SELFPAY ==
--- NOTE | 2025-01-04 16:10 | DI.MG.S_ITS ---
MM screening mammo BI: 01/04/2025. BI-RADS: 2 CLINICAL: 79-year old female for bilateral screening mammogram. Tyrer-Cuzick lifetime risk of 2.3%. Current reported family history of breast cancer: mother and sister. PRIOR EXAMS 06/13/2023, 02/15/2020, 07/23/2017, 01/31/2016. MAMMOGRAPHY TECHNIQUE: 2D and 3D (tomosynthesis) digital mammographic views obtained, with additional images as needed for full coverage. Current study was also evaluated with a Computer Aided Detection (CAD) system. DENSITY C. The breasts are heterogeneously dense, which may obscure small masses. MAMMOGRAPHY FINDINGS Right: Benign-appearing asymmetry noted on the right. There are no suspicious masses, calcifications, or other findings in the breast. Left: No suspicious mass, asymmetry, microcalcification, or other abnormality seen. IMPRESSION: Right * No evidence of malignancy with benign findings. Left * No evidence of malignancy. RECOMMENDATIONS Bilateral * Annual screening mammography. OVERALL ASSESSMENT CATEGORY BI-RADS-2: Benign. The [employer] recommends annual screening mammography beginning at age 40 for women with average risk of breast cancer. ELECTRONICALLY SIGNED: Bhartah Herrera M.D. on 01/05/2025 at 06:51:03 AM PT Interpreting Station ID: [id number]
== END ==
PROVIDERS: PCP Internal Medicine; Referring Provider Internal Medicine; Visit Provider Internal Medicine
DX: Z12.31 Encounter for screening mammogram for malignant neoplasm of breast (principal); Z80.3 Family history of malignant neoplasm of breast; R92.333 Mammographic heterogeneous density, bilateral breasts
CPT/HCPCS: 77063; 77067